=== PATIENT | male | born 1930 | race Caucasian/White ===

== ENCOUNTER 2017-03-19 19:34 | Inpatient (IN) | payer OTHER, BC ==
[~2017-03-19] VITALS: Ht 160 cm; Wt 74.8 kg
[~2017-03-19 19:34] MED LIST: ASPEC81 PO; LEVO-17 PO; LEVO100T48 PO; LEVO25TA34 PO
[2017-03-19] MEDS ORDERED: SODIUM CHLORIDE 0.9% 1000ML 1,000 ML IV STA (19:50)
[2017-03-19] MEDS ORDERED: ONDANSETRON INJ 2 MG/ML 2 ML VIAL IV STA (19:50)
--- NOTE | 2017-03-19 19:57 | EMERGENCY ROOM VISIT NOTE ---
History Report prepared by Ingrid: [facility] Under the Supervision of: Dr. Joe Zavala D.O. First contact with patient: 19:43 Chief Complaint: ABDOMINAL PAIN Stated Complaint: R UPPER ABD PAIN History of Present Illness The patient is an 87 year old male who presents to the Emergency Room with complaints of waxing and waning abdominal pain that started today. Per patient' s daughter, the discomfort is mostly in his right upper quadrant and the discomfort radiates to his right flank. Per patient's daughter, the pain is worsened when she presses on the area. The patient also complains of shivering and not being able to pass urine all day. The patient presented to an acute care who recommended he present to the ED when he was able to pass urine. The patient denies nausea or vomiting. Source of History: patient, family Onset: today Position: abdomen (RUQ) Timing: waxes/wanes Modifying Factors (Worsening): other (pressing on the area) Associated Symptoms: + urinary symptoms (unable to pass urine), No nausea, No vomiting Note: Other associated symptoms: radiation to right flank, shivering Review of Systems See HPI for pertinent positives & negatives. A total of 10 systems reviewed and were otherwise negative. Past Medical & Surgical Medical Problems: (1) Cholecystitis Family History No pertinent family history Social History Smoking Status: Former Smoker Marital Status: Housing Status: lives with significant other Occupation Status: retired Current/Historical Medications Scheduled Aspirin (Aspirin Ec), 81 MG PO DAILY Furosemide (Lasix), 40 MG PO DAILY Levothyroxine Sodium (Levothyroxine Sodium), 100 MG PO DAILY Rivastigmine Tartrate (Exelon), 1 PATCH TOP DAILY [Spiriva 18MCG], 1 PUFF INH DAILY Allergies Coded Allergies: No Known Allergies (Unverified , 05/05/11) Physical Exam Vital Signs Date Time Temp Pulse Resp B/P Pulse Ox O2 Delivery O2 Flow Rate FiO2 03/19/17 21:39 83 25 93 03/19/17 21:32 129/65 03/19/17 21:09 92 28 90 03/19/17 21:05 90 Nasal Cannula 4.0 03/19/17 21:04 87 29 84 03/19/17 21:00 138/62 03/19/17 19:38 37.4 95 20 145/82 98 Room Air Physical Exam GENERAL: Patient is awake but somewhat listless appearing, patient appears mildly uncomfortable. EYES: The conjunctivae are clear. The pupils are round and reactive. EARS, NOSE, MOUTH AND THROAT: The nose is without any evidence of any deformity. Mucous membranes are moist tongue is midline NECK: The neck is nontender and supple. RESPIRATORY: Normal respiratory effort is noted there is no evidence of wheezing rhonchi or rales CARDIOVASCULAR: Regular rate and rhythm noted there no murmurs rubs or gallops normal S1 normal S2 GASTROINTESTINAL: The abdomen is moderate distended and diffusely tender, there was significant tenderness in RUQ. MUSCULOSKELETAL/EXTREMITIES: There is no evidence of gross deformity full range of motion is noted in the hips and shoulders SKIN: There is no obvious evidence of any rash. There are no petechiae, pallor or cyanosis noted. Pedal edema noted bilaterally. NEUROLOGIC: Patient is awake alert and oriented to person and place but not time or situation. Medical Decision & Procedures ER Provider Diagnostic Interpretation: Radiology results as stated below per my review and radiologist interpretation: SINGLE VIEW CHEST CLINICAL HISTORY: Generalized abdominal pain. FINDINGS: An AP, portable, upright chest radiograph is compared to study dated 05/07/2011. The examination is degraded by portable technique and patient rotation. The cardiomediastinal silhouette is unremarkable. There is atherosclerotic calcification of the thoracic aorta. There are low lung volumes and bibasilar atelectasis. No airspace consolidation is identified typical for pneumonia and there is no large pleural effusion. No pneumothorax is seen. The skeletal structures are osteopenic. The bony thorax is grossly intact. IMPRESSION: Low lung volumes with no acute cardiopulmonary abnormality. Electronically signed by: Jaron Villalba M.D. 03/19/2017 8:33 PM Dictated Date/Time: 03/19/2017 8:[address] SCAN OF THE ABDOMEN AND PELVIS WITHOUT IV CONTRAST CLINICAL HISTORY: Right-sided abdominal pain. COMPARISON STUDY: No priors. TECHNIQUE: CT scan of the abdomen and pelvis is performed from the lung bases to the proximal femora. Images are reviewed in the axial, sagittal, and coronal planes. IV contrast was not administered for this examination as per the referring clinician. Note that the examination was performed and significant suboptimal fashion without oral and IV contrast. Automated dose control exposure was utilized. CT DOSE: 814.50 mGy.cm FINDINGS: Lung bases: The heart is enlarged and there is trace pericardial effusion. There are coronary artery calcifications. The main pulmonary arteries appear dilated suggesting pulmonary artery hypertension. A small hiatal hernia is noted. Linear atelectasis versus scarring is present in the lower lobes. There is no airspace consolidation typical for pneumonia or pleural effusion. Liver: The unenhanced liver is normal in size, contour, and attenuation. There is no intrahepatic biliary ductal dilatation. Gallbladder: The gallbladder is distended. Small calcified gallstones are identified. A 4 mm calcified stone is present within the cystic duct as seen on axial image #131. Minimal pericholecystic stranding is observed and the findings are consistent with acute cholecystitis. Spleen: Normal in size and attenuation. Pancreas: The unenhanced pancreas is grossly unremarkable. Adrenal glands: Unremarkable. Kidneys: The unenhanced kidneys are atrophic and without hydronephrosis. A 1.2 cm cyst is noted in the left kidney. Additional subcentimeter cortical hypodensities also likely represent cysts but are too small for definitive characterization. There are no renal calculi identified. There is no evidence of contour deforming renal mass lesion. Abdominal vasculature: The abdominal aorta is normal in course and caliber noting moderate to advanced atherosclerotic calcification. Bowel: There is no bowel obstruction. There is mild to moderate sigmoid diverticulosis without CT evidence of acute diverticulitis. Mild to moderate colonic fecal retention is observed. The appendix is not clearly identified. Peritoneum: There is no intraperitoneal free air or abdominal ascites. There is a small fat-containing umbilical hernia. Lymphadenopathy: None. Pelvic viscera: The prostate gland is surgically absent. Although decompressed, the bladder wall appears thickened and trabeculated suggesting the sequelae of chronic outlet obstruction. Skeletal structures: The skeletal structures are osteopenic. There is moderate to advanced lumbosacral spondylosis. Mild scoliosis is observed. No lytic or blastic lesions are seen. IMPRESSION: 1. Suboptimal examination without oral and IV contrast. 2. Cholelithiasis with evidence of acute cholecystitis. A calcified gallstone is seen within the cystic duct. Surgical consultation is advised. 3. Cardiomegaly. 4. Mild to moderate sigmoid diverticulosis without CT evidence of acute diverticulitis. 5. Additional findings as above. Electronically signed by: Jaron Villalba M.D. 03/19/2017 9:03 PM Dictated Date/Time: 03/19/2017 8:56 PM Laboratory Results 03/19/17 20:07 Red Blood Count 5.55, Mean Corpuscular Volume 91.4, Mean Corpuscular Hemoglobin 31.2, Mean Corpuscular Hemoglobin Concent 34.1, Mean Platelet Volume 9.9, Neutrophils (%) (Auto) 91.2, Lymphocytes (%) (Auto) 2.0, Monocytes (%) (Auto) 6.4, Eosinophils (%) (Auto) 0.0, Basophils (%) (Auto) 0.1, Neutrophils # (Auto) 13.07, Lymphocytes # (Auto) 0.29, Monocytes # (Auto) 0.92, Eosinophils # (Auto) 0.00, Basophils # (Auto) 0.02 03/19/17 20:07 Test 03/19/17 20:07 03/19/17 21:15 White Blood Count 14.35 K/uL (4.8-10.8) Red Blood Count 5.55 M/uL (4.7-6.1) Hemoglobin 17.3 g/dL (14.0-18.0) Hematocrit 50.7 % (42-52) Mean Corpuscular Volume 91.4 fL (80-100) Mean Corpuscular Hemoglobin 31.2 pg (25-34) Mean Corpuscular Hemoglobin Concent 34.1 g/dl (32-36) Platelet Count 193 K/uL (130-400) Mean Platelet Volume 9.9 fL (7.4-10.4) Neutrophils (%) (Auto) 91.2 % Lymphocytes (%) (Auto) 2.0 % Monocytes (%) (Auto) 6.4 % Eosinophils (%) (Auto) 0.0 % Basophils (%) (Auto) 0.1 % Neutrophils # (Auto) 13.07 K/uL (1.4-6.5) Lymphocytes # (Auto) 0.29 K/uL (1.2-3.4) Monocytes # (Auto) 0.92 K/uL (0.11-0.59) Eosinophils # (Auto) 0.00 K/uL (0-0.5) Basophils # (Auto) 0.02 K/uL (0-0.2) RDW Standard Deviation 43.0 fL (36.4-46.3) RDW Coefficient of Variation 12.9 % (11.5-14.5) Immature Granulocyte % (Auto) 0.3 % Immature Granulocyte # (Auto) 0.05 K/uL (0.00-0.02) Prothrombin Time 10.7 SECONDS (9.0-12.0) Prothromb Time International Ratio 1.0 (0.9-1.1) Activated Partial Thromboplast Time 29.6 SECONDS (21.0-31.0) Partial Thromboplastin Ratio 1.1 Anion Gap 1.0 mmol/L (3-11) Est Creatinine Clear Calc Drug Dose 40.0 ml/min Estimated GFR () 63.1 Estimated GFR (Non- 54.4 BUN/Creatinine Ratio 13.7 (10-20) Calcium Level 10.1 mg/dl (8.5-10.1) Total Bilirubin 1.7 mg/dl (0.2-1) Direct Bilirubin 0.3 mg/dl (0-0.2) Aspartate Amino Transf (AST/SGOT) 25 U/L (15-37) Alanine Aminotransferase (ALT/SGPT) 22 U/L (12-78) Alkaline Phosphatase 86 U/L (45-117) Total Creatine Kinase 149 U/L (39-308) Creatine Kinase MB 2.4 ng/ml (0.5-3.6) Creatine Kinase MB Ratio 1.6 (0-3.0) Troponin I < 0.015 ng/ml (0-0.045) Total Protein 7.5 gm/dl (6.4-8.2) Albumin 3.6 gm/dl (3.4-5.0) Lipase 93 U/L (73-393) Urine Color DK YELLOW Urine Appearance CLEAR (CLEAR) Urine pH 5.5 (4.5-7.5) Urine Specific [place] 1.028 (1.000-1.030) Urine Protein 1+ (NEG) Urine Glucose (UA) NEG (NEG) Urine Ketones TRACE (NEG) Urine Occult Blood NEG (NEG) Urine Nitrite NEG (NEG) Urine Bilirubin NEG (NEG) Urine Urobilinogen NEG (NEG) Urine Leukocyte Esterase NEG (NEG) Urine WBC (Auto) 1-5 /hpf (0-5) Urine RBC (Auto) 0-4 /hpf (0-4) Urine Hyaline Casts (Auto) 1-5 /lpf (0-5) Urine Epithelial Cells (Auto) >30 /lpf (0-5) Urine Bacteria (Auto) NEG (NEG) Urine Renal Epithelial Cells 0-5 /lpf (0-5) Laboratory results per my review. Medications Administered Medications (Trade) Dose Ordered Sig/Bennett Route Start Time Stop Time Status Last Admin Dose Admin Sodium Chloride (Nss 1000ml) 1,000 ml @ 125 mls/hr Q8H STAT IV 03/19/17 19:50 03/20/17 00:18 DC 03/19/17 20:15 125 MLS/HR Morphine Sulfate (MoRPHine SULFATE INJ) 4 mg Q15M PRN IV 03/19/17 20:00 03/20/17 00:19 DC 03/19/17 20:16 4 MG Ondansetron HCl (Zofran Inj) 4 mg NOW STAT IV 03/19/17 19:50 03/19/17 19:52 DC 03/19/17 20:15 4 MG Piperacillin Sod/ Tazobactam Sod (Zosyn Iv) 4.5 gm NOW STAT IV 03/19/17 20:44 03/19/17 20:45 DC 03/19/17 20:51 4.5 GM ECG Indication: abdominal pain Rate (beats per minute): 86 Rhythm: normal sinus Findings: RBBB (pattern noted), other (no PVCs) Change: no significant change (when compared to May 05, 2011) ED Course 1947: The patient was evaluated in room B7. A complete history and physical examination were performed. 1949: Ordered Zofran Inj 4 mg IV, NSS 1000 ml @ 125 mls/hr IV. 1999: Ordered Morphine Sulfate 4 mg IV. 2043: Ordered Zosyn Iv 4.5 gm IV. 2114: At this time, I discussed the patient's case with Dr. Wilkinson - [place] [facility] [place] he recommended that the patient be medically admitted. 2127: At this time, I discussed the patient's case with Dr. Curiel - Hospitalist [facility] and he agreed to accept the patient for further evaluation. Medical Decision Differential diagnosis: Etiologies such as appendicitis, diverticulitis, PUD, biliary pathology, UTI, pancreatitis, obstruction, mesenteric ischemia, aortic pathology, infections, inflammatory bowel disease, renal colic, as well as others were entertained. Nursing notes reviewed. Additional history is obtained from the patient's family member. The patient is an 87-year-old male who presented to the emergency department for evaluation of right upper quadrant abdominal pain. The patient's history and physical exam appeared to be consistent cholecystitis. This was confirmed on CAT scan the abdomen and pelvis. He was further treated with IV fluids IV antiemetics and IV antibiotics. He is also given IV pain medication. On subsequent reevaluation he was significantly improved. I discussed the patient' s laboratory and radiographic studies with him and his family members. I also discussed his case with the on-call general surgeon as well as the on-call [facility] hospitalist. They've agreed to evaluate patient in the emergency department for further management and disposition. Consults Time Called: 2109 Consulting Physician: Dr. Wilkinson - General Surgery [facility] [place]ed Call: 2114 At this time, I discussed the patient's case with Dr. Wilkinson and he recommended that the patient be medically admitted. Additional Consults: Time Called: 2121 Consulted Physician: Dr. Curiel - Hospitalist [facility] Returned Call: 2127 Additional Comments: At this time, I discussed the patient's case with Dr. Curiel and he agreed to accept the patient for further evaluation. Impression Primary Impression: Acute cholecystitis Additional Impression: Abdominal pain Scribe Attestation The scribe's documentation has been prepared under my direction and personally reviewed by me in its entirety. I confirm that the note above accurately reflects all work, treatment, procedures, and medical decision making performed by me. Departure Information Dispostion Being Evaluated By Hospitalist Referrals No Doctor, Assigned (PCP) Problem Qualifiers Additional Impression: Abdominal pain Abdominal location: right upper quadrant Qualified Codes: R10.11 - Right upper quadrant pain
[2017-03-19] MEDS ORDERED: MoRPHine SULFATE 4 MG/ML 1 ML CARP\\VIAL IV PRN (20:00)
[2017-03-19 20:18] LABS: BASO % 0.1 %; BASO ABS # 0.02 K/uL (0-0.2); COMPLETE YES; HEMATOCRIT 50.7 % (42-52); IG% 0.3 %; LYMPH ABS # 0.29 K/uL (1.2-3.4); MEAN CELL VOLUME 91.4 fL (80-100); MEAN CORPUSCULAR HEMOGLOBIN 31.2 pg (25-34); MEAN CORPUSCULAR HGB CONC 34.1 g/dl (32-36); MEAN PLATELET VOLUME 9.9 fL (7.4-10.4); MONO % 6.4 %; NEUT % 91.2 %; PLATELET COUNT 193 K/uL (130-400); RED BLOOD COUNT 5.55 M/uL (4.7-6.1); WHITE BLOOD COUNT 14.35 K/uL (4.8-10.8)
[2017-03-19 20:28] LABS: PARTIAL THROMBOPLASTIN RATIO 1.1; PROTHROMBIN TIME (PATIENT) 10.7 SECONDS (9.0-12.0)
[2017-03-19] MEDS ORDERED: LEVO100T7 PO (20:30)
[2017-03-19] MEDS ORDERED: SPIRIVA 18MCG INH (20:32)
[2017-03-19] MEDS ORDERED: EXLP95 TOP (20:34)
[2017-03-19] MEDS ORDERED: FRS/40 PO (20:35)
[2017-03-19] MEDS ORDERED: ASPI81TA28 PO (20:35)
--- NOTE | 2017-03-19 20:35 | DIAGNOSTIC IMAGING REPORT ---
SINGLE VIEW CHEST CLINICAL HISTORY: Generalized abdominal pain. FINDINGS: An AP, portable, upright chest radiograph is compared to study dated 05/07/2011. The examination is degraded by portable technique and patient rotation. The cardiomediastinal silhouette is unremarkable. There is atherosclerotic calcification of the thoracic aorta. There are low lung volumes and bibasilar atelectasis. No airspace consolidation is identified typical for pneumonia and there is no large pleural effusion. No pneumothorax is seen. The skeletal structures are osteopenic. The bony thorax is grossly intact. IMPRESSION: Low lung volumes with no acute cardiopulmonary abnormality. Electronically signed by: Jaron Villalba M.D. 03/19/2017 8:33 PM Dictated Date/Time: 03/19/2017 8:32 PM
[2017-03-19 20:36] LABS: ALT/SGPT 22 U/L (12-78); AST/SGOT 25 U/L (15-37); BLOOD UREA NITROGEN 16 mg/dl (7-18); BUN/CREATININE RATIO 13.7 (10-20); CALCIUM 10.1 mg/dl (8.5-10.1); CARBON DIOXIDE 38 mmol/L (21-32); CHLORIDE 99 mmol/L (98-107); GLUCOSE 158 mg/dl (70-99); POTASSIUM 4.3 mmol/L (3.5-5.1); SODIUM 138 mmol/L (136-145)
[2017-03-19] MEDS ORDERED: NMN5 PO (20:37)
[2017-03-19 20:42] LABS: ALKALINE PHOSPHATASE 86 U/L (45-117); CKMB/CK RATIO 1.6 (0-3.0)
[2017-03-19] MEDS ORDERED: HYDR12.55 PO (20:43)
[2017-03-19] MEDS ORDERED: PIPERACILLIN/TAZOBACTAM 4.5 GM/100ML D5W IV STA (20:44)
--- NOTE | 2017-03-19 21:05 | DIAGNOSTIC IMAGING REPORT ---
CT SCAN OF THE ABDOMEN AND PELVIS WITHOUT IV CONTRAST CLINICAL HISTORY: Right-sided abdominal pain. COMPARISON STUDY: No priors. TECHNIQUE: CT scan of the abdomen and pelvis is performed from the lung bases to the proximal femora. Images are reviewed in the axial, sagittal, and coronal planes. IV contrast was not administered for this examination as per the referring clinician. Note that the examination was performed and significant suboptimal fashion without oral and IV contrast. Automated dose control exposure was utilized. CT DOSE: 814.50 mGy.cm FINDINGS: Lung bases: The heart is enlarged and there is trace pericardial effusion. There are coronary artery calcifications. The main pulmonary arteries appear dilated suggesting pulmonary artery hypertension. A small hiatal hernia is noted. Linear atelectasis versus scarring is present in the lower lobes. There is no airspace consolidation typical for pneumonia or pleural effusion. Liver: The unenhanced liver is normal in size, contour, and attenuation. There is no intrahepatic biliary ductal dilatation. Gallbladder: The gallbladder is distended. Small calcified gallstones are identified. A 4 mm calcified stone is present within the cystic duct as seen on axial image #131. Minimal pericholecystic stranding is observed and the findings are consistent with acute cholecystitis. Spleen: Normal in size and attenuation. Pancreas: The unenhanced pancreas is grossly unremarkable. Adrenal glands: Unremarkable. Kidneys: The unenhanced kidneys are atrophic and without hydronephrosis. A 1.2 cm cyst is noted in the left kidney. Additional subcentimeter cortical hypodensities also likely represent cysts but are too small for definitive characterization. There are no renal calculi identified. There is no evidence of contour deforming renal mass lesion. Abdominal vasculature: The abdominal aorta is normal in course and caliber noting moderate to advanced atherosclerotic calcification. Bowel: There is no bowel obstruction. There is mild to moderate sigmoid diverticulosis without CT evidence of acute diverticulitis. Mild to moderate colonic fecal retention is observed. The appendix is not clearly identified. Peritoneum: There is no intraperitoneal free air or abdominal ascites. There is a small fat-containing umbilical hernia. Lymphadenopathy: None. Pelvic viscera: The prostate gland is surgically absent. Although decompressed, the bladder wall appears thickened and trabeculated suggesting the sequelae of chronic outlet obstruction. Skeletal structures: The skeletal structures are osteopenic. There is moderate to advanced lumbosacral spondylosis. Mild scoliosis is observed. No lytic or blastic lesions are seen. IMPRESSION: 1. Suboptimal examination without oral and IV contrast. 2. Cholelithiasis with evidence of acute cholecystitis. A calcified gallstone is seen within the cystic duct. Surgical consultation is advised. 3. Cardiomegaly. 4. Mild to moderate sigmoid diverticulosis without CT evidence of acute diverticulitis. 5. Additional findings as above. Electronically signed by: Jaron Villalba M.D. 03/19/2017 9:03 PM Dictated Date/Time: 03/19/2017 8:56 PM
[2017-03-19 21:48] LABS: URINE APPEARANCE CLEAR (CLEAR); URINE COLOR DK YELLOW; URINE EPITHELIAL CELL AUTO >30 /lpf (0-5); URINE NITRITE NEG (NEG); URINE PH 5.5 (4.5-7.5); URINE SPECIFIC GRAVITY 1.028 (1.000-1.030); UROBILINOGEN NEG (NEG); ZZURINE CULT IF INDIC CATH NO
[2017-03-19 21:50] LABS: MANUAL MICROSCOPIC REQUIRED? NO; REVIEW REQ? YES
[2017-03-19 21:51] LABS: URINE BILIRUBIN NEG (NEG)
--- NOTE | 2017-03-19 21:53 | Medical Consult ---
Consultation Date of Consultation: March 19, 2017. Attending Physician: Reason for Consultation: abd pain History of Present Illness persistent RUQ abd pain w/ radiation to the back associated with some nausea- atypical for pt TB 1.7, wbc 14.3 CT- distended gb with small gallstones Social History Smoking Status: Former Smoker Marital Status: Allergies Coded Allergies: No Known Allergies (Unverified , 05/05/11) Current Inpatient Medications Current Inpatient Medications Medications (Trade) Dose Ordered Sig/Bennett Route Start Time Stop Time Status Last Admin Dose Admin Sodium Chloride (Nss 1000ml) 1,000 ml @ 125 mls/hr Q8H STAT IV 03/19/17 19:50 03/20/17 03:49 03/19/17 20:15 125 MLS/HR Morphine Sulfate (MoRPHine SULFATE INJ) 4 mg Q15M PRN IV 03/19/17 20:00 04/02/17 19:59 03/19/17 20:16 4 MG Review of Systems Constitutional: + chills, No fever Respiratory: + shortness of breath, No cough Cardiovascular: No chest pain Abdomen: + nausea, + pain, No vomiting Musculoskeletal: No joint pain Neurologic: + problem reported (mild memory loss) Endocrine: No fatigue Integumentary: No rash Physical Exam Date Time Temp Pulse Resp B/P Pulse Ox O2 Delivery O2 Flow Rate FiO2 03/19/17 21:05 90 Nasal Cannula 4.0 03/19/17 21:04 87 29 84 03/19/17 21:00 138/62 03/19/17 19:38 37.4 95 20 145/82 98 Room Air General Appearance: + mild distress (from RUQ abd pain) Eyes: sclerae normal Neck: supple Respiratory/Chest: normal breath sounds, no respiratory distress Cardiovascular: regular rate, rhythm Abdomen/GI: soft, + tenderness (mild RUQ) Extremities/Musculoskelatal: no pedal edema Skin: no rash Laboratory Results Last 24 Hours Test 03/19/17 20:07 03/19/17 21:15 White Blood Count 14.35 K/uL Red Blood Count 5.55 M/uL Hemoglobin 17.3 g/dL Hematocrit 50.7 % Mean Corpuscular Volume 91.4 fL Mean Corpuscular Hemoglobin 31.2 pg Mean Corpuscular Hemoglobin Concent 34.1 g/dl Platelet Count 193 K/uL Mean Platelet Volume 9.9 fL Neutrophils (%) (Auto) 91.2 % Lymphocytes (%) (Auto) 2.0 % Monocytes (%) (Auto) 6.4 % Eosinophils (%) (Auto) 0.0 % Basophils (%) (Auto) 0.1 % Neutrophils # (Auto) 13.07 K/uL Lymphocytes # (Auto) 0.29 K/uL Monocytes # (Auto) 0.92 K/uL Eosinophils # (Auto) 0.00 K/uL Basophils # (Auto) 0.02 K/uL RDW Standard Deviation 43.0 fL RDW Coefficient of Variation 12.9 % Immature Granulocyte % (Auto) 0.3 % Immature Granulocyte # (Auto) 0.05 K/uL Prothrombin Time 10.7 SECONDS Prothromb Time International Ratio 1.0 Activated Partial Thromboplast Time 29.6 SECONDS Partial Thromboplastin Ratio 1.1 Sodium Level 138 mmol/L Potassium Level 4.3 mmol/L Chloride Level 99 mmol/L Carbon Dioxide Level 38 mmol/L Anion Gap 1.0 mmol/L Blood Urea Nitrogen 16 mg/dl Creatinine 1.20 mg/dl Est Creatinine Clear Calc Drug Dose 40.0 ml/min Estimated GFR () 63.1 Estimated GFR (Non- 54.4 BUN/Creatinine Ratio 13.7 Random Glucose 158 mg/dl Calcium Level 10.1 mg/dl Total Bilirubin 1.7 mg/dl Direct Bilirubin 0.3 mg/dl Aspartate Amino Transf (AST/SGOT) 25 U/L Alanine Aminotransferase (ALT/SGPT) 22 U/L Alkaline Phosphatase 86 U/L Total Creatine Kinase 149 U/L Creatine Kinase MB 2.4 ng/ml Creatine Kinase MB Ratio 1.6 Troponin I < 0.015 ng/ml Total Protein 7.5 gm/dl Albumin 3.6 gm/dl Lipase 93 U/L Assessment & Plan 03/19/17- pt with suspected acute cholecystitis- considering MRCP to evaluate for CBD stones- plan- IV atbx, IV fluids, probable lap bon, possible cholangiogram tomorrow
[2017-03-19] MEDS ORDERED: ONDANSETRON INJ 2 MG/ML 2 ML VIAL IV PRN (22:00)
[2017-03-19] MEDS ORDERED: ALUMINUM/MAGNESIUM/SIMETH (MAALOX MAX) 30 ML UDC PO PRN (22:00)
[2017-03-19] MEDS ORDERED: LEVALBUTEROL/IPRATROPIUM NEB INH PRN (22:00)
[2017-03-19] MEDS ORDERED: MoRPHine SULFATE 2 MG/ML CARP IV PRN (22:00)
[2017-03-19] MEDS ORDERED: ALBUTEROL HFA 8 GM INHALER INH PRN (22:00)
--- NOTE | 2017-03-19 22:58 | HISTORY & PHYSICAL EXAMINATION ---
DATE OF ADMISSION: 03/19/2017 CHIEF COMPLAINT: Abdominal pain. HISTORY OF PRESENT ILLNESS: This is an 87-year-old male with past medical history significant for sleep apnea status post surgery, history of hypothyroidism, lower extremity edema, hypertension, not on any medications, history of prostate cancer and prostatitis and Lyme disease, presents with right upper quadrant abdominal pain. The patient also has some early dementia. The patient lives with his , is ambulatory and can climb steps and is alert and oriented most of the times, but sometimes gets confused because of his dementia. Patient complained of right upper quadrant abdominal pain today, radiating to his back, moderate in severity and patient was also having some chills at that time and some nausea and decided to come to the ER. In the ER, a CAT scan showed cholecystitis. The patient's pain is controlled with pain medication. Resting comfortably, hemodynamically stable. Denies any chest pain, no shortness of breath, no cough, no headaches, no nausea, no vomiting at this time. Normal bowel and bladder movements. Appetite is okay. ALLERGIES: No known drug allergies. PAST MEDICAL HISTORY: As mentioned above. PAST SURGICAL HISTORY: Prostate laser complete, removal of a pharynx lesion, obstructive sleep apnea. MEDICATIONS: The patient is on aspirin 81 mg p.o. daily, Lasix 40 mg p.o. daily, levothyroxine 100 mcg p.o. daily, Exelon 9.5 mg patch daily, Spiriva 18 mcg inhalation daily. FAMILY HISTORY: Significant for hypertension. SOCIAL HISTORY: No smoking, no alcohol use. 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 REVIEW OF SYMPTOMS: As per HPI. Rest of the review of symptoms negative. PHYSICAL EXAMINATION: GENERAL: The patient is old and frail, not in distress. VITAL SIGNS: Temperature 37, pulse 87, respiratory rate 20, blood pressure 138/62, oxygen 90% on 4 liters. HEENT: No pallor, no icterus. Pupils equal, round, and reactive to light. NECK: No JVD, no neck masses, no carotid bruits. CARDIOVASCULAR: S1, S2 heard, regular rate and rhythm, no murmur, no gallop. RESPIRATORY SYSTEM: Clear to auscultation bilaterally. No accessory muscle use. No wheezing, no crackles. ABDOMEN: Soft, bowel sounds present. Mild right upper quadrant tenderness, no guarding, no rigidity. No distention. CENTRAL NERVOUS SYSTEM: Alert and awake. Nonfocal. EXTREMITIES: Lower extremity edema present. No erythema seen. LABORATORIES: WBC 14.3, hemoglobin 7.3, hematocrit 50.7, platelets 193. Sodium 138, potassium 4.3, chloride 99, CO2 38, BUN 16, creatinine 1.2, serum glucose 158, calcium 10.1, total bilirubin 1.7, direct bilirubin 0.3, AST 25, ALT 22, alkaline phosphatase 86, total creatine kinase 149, troponin I less than 0.015. Lipase 93. PT 10.7, INR 1, PTT 29.6. Urinalysis, trace ketones; otherwise unremarkable. Chest x-ray, low lung volumes with no acute cardiopulmonary abnormalities. EKG shows normal sinus rhythm with a rate of 82, right bundle-branch block, no acute ST changes seen. CT of the abdomen and pelvis, choledocholithiasis with evidence of acute cholecystitis. A calcified gallstone is seen within the cystic duct, [id number] sigmoid diverticulosis without CT evidence of acute diverticulitis. ASSESSMENT AND PLAN: This 87-year-old male presents with right upper quadrant abdominal pain. CAT scan shows acute cholecystitis. 1. Acute cholecystitis. There is also a question of a calcified gallstone in the cystic duct. Bilirubin is slightly elevated at 1.7. Seen by surgery. Will empirically place on IV antibiotics, Cipro and Flagyl IV, IV antiemetics, IV pain medication, IV fluids. Plan for MRCP tonight to evaluate for any common bile duct stones. Plan to keep the patient n.p.o. for possible surgery in the a.m. Patient is currently hemodynamically stable. 2. History of chronic obstructive pulmonary disease. Continue his home Spiriva and inhalers p.r.n. 3. History of chronic lower extremity edema, on Lasix daily, which we are holding for now as patient is npo. 4. History of sleep apnea, status post surgery, not on CPAP. 5. Deep venous thrombosis prophylaxis. Sequential compression devices for now in anticipation of surgery. DISPOSITION: Admit to medical floor. Expect to discharge home and follow with his family doctor. PT and OT prior to discharge. Level 1. Full code. MTDD
[2017-03-20] VITALS (10 sets, daily range): BP systolic 115–144; BP diastolic 62–72; PULSE 80–91; TEMP 36.3–37.5; O2SAT 91–96; Ht 160 cm; Wt 74.8 kg
[2017-03-20] MEDS: METRONIDAZOLE / NSS 500 MG in PREMIXED NSS 100 ML IV SCH ×3 (01:16→17:23)
[2017-03-20] MEDS: CIPROFLOXACIN / D5W 400 MG in PREMIXED IN D5W 200 ML IV SCH ×2 (01:16→12:47)
[2017-03-20] MEDS: SODIUM CHLORIDE 0.9% 1000ML 1,000 ML IV SCH ×3 (01:17→19:42)
--- NOTE | 2017-03-20 05:43 | Surgery Progress Note ---
Surgery Progress Note Date of Service March 20, 2017. Subjective No nausea, No vomiting resting comfortably in bed, afeb, minimal pain at present Objective Vital Signs: Date Time Temp Pulse Resp B/P Pulse Ox O2 Delivery O2 Flow Rate FiO2 03/20/17 00:40 Nasal Cannula 2.0 03/20/17 00:19 37.1 91 16 144/64 91 Nasal Cannula 2.0 03/19/17 23:35 75 18 114/68 93 Nasal Cannula 4.0 03/19/17 22:36 77 23 96 Nasal Cannula 4.0 03/19/17 22:31 125/59 03/19/17 22:06 83 26 95 Nasal Cannula 4.0 03/19/17 22:01 128/58 03/19/17 21:39 83 25 93 03/19/17 21:32 129/65 03/19/17 21:09 92 28 90 03/19/17 21:05 90 Nasal Cannula 4.0 03/19/17 21:04 87 29 84 03/19/17 21:00 138/62 03/19/17 19:38 37.4 95 20 145/82 98 Room Air General Appearance: no apparent distress Respiratory/Chest: no respiratory distress Cardiovascular: regular rate, rhythm Abdomen: non distended, soft Laboratory Results: Results Past 24 Hours Test 03/19/17 20:07 03/19/17 21:15 03/20/17 04:44 Range/Units White Blood Count 14.35 4.8-10.8 K/uL Red Blood Count 5.55 4.7-6.1 M/uL Hemoglobin 17.3 14.0-18.0 g/dL Hematocrit 50.7 42-52 % Mean Corpuscular Volume 91.4 80-100 fL Mean Corpuscular Hemoglobin 31.2 25-34 pg Mean Corpuscular Hemoglobin Concent 34.1 32-36 g/dl Platelet Count 193 130-400 K/uL Mean Platelet Volume 9.9 7.4-10.4 fL Neutrophils (%) (Auto) 91.2 % Lymphocytes (%) (Auto) 2.0 % Monocytes (%) (Auto) 6.4 % Eosinophils (%) (Auto) 0.0 % Basophils (%) (Auto) 0.1 % Neutrophils # (Auto) 13.07 1.4-6.5 K/uL Lymphocytes # (Auto) 0.29 1.2-3.4 K/uL Monocytes # (Auto) 0.92 0.11-0.59 K/uL Eosinophils # (Auto) 0.00 0-0.5 K/uL Basophils # (Auto) 0.02 0-0.2 K/uL RDW Standard Deviation 43.0 36.4-46.3 fL RDW Coefficient of Variation 12.9 11.5-14.5 % Immature Granulocyte % (Auto) 0.3 % Immature Granulocyte # (Auto) 0.05 0.00-0.02 K/uL Prothrombin Time 10.7 9.0-12.0 SECONDS Prothromb Time International Ratio 1.0 0.9-1.1 Activated Partial Thromboplast Time 29.6 21.0-31.0 SECONDS Partial Thromboplastin Ratio 1.1 Sodium Level 138 136-145 mmol/L Potassium Level 4.3 3.5-5.1 mmol/L Chloride Level 99 98-107 mmol/L Carbon Dioxide Level 38 21-32 mmol/L Anion Gap 1.0 3-11 mmol/L Blood Urea Nitrogen 16 7-18 mg/dl Creatinine 1.20 0.60-1.40 mg/dl Est Creatinine Clear Calc Drug Dose 40.0 ml/min Estimated GFR () 63.1 Estimated GFR (Non- 54.4 BUN/Creatinine Ratio 13.7 10-20 Random Glucose 158 70-99 mg/dl Calcium Level 10.1 8.5-10.1 mg/dl Total Bilirubin 1.7 0.2-1 mg/dl Direct Bilirubin 0.3 0-0.2 mg/dl Aspartate Amino Transf (AST/SGOT) 25 15-37 U/L Alanine Aminotransferase (ALT/SGPT) 22 12-78 U/L Alkaline Phosphatase 86 45-117 U/L Total Creatine Kinase 149 39-308 U/L Creatine Kinase MB 2.4 0.5-3.6 ng/ml Creatine Kinase MB Ratio 1.6 0-3.0 Troponin I < 0.015 0-0.045 ng/ml Total Protein 7.5 6.4-8.2 gm/dl Albumin 3.6 3.4-5.0 gm/dl Lipase 93 73-393 U/L Urine Color DK YELLOW Urine Appearance CLEAR CLEAR Urine pH 5.5 4.5-7.5 Urine Specific [place] 1.028 1.000-1.030 Urine Protein 1+ NEG Urine Glucose (UA) NEG NEG Urine Ketones TRACE NEG Urine Occult Blood NEG NEG Urine Nitrite NEG NEG Urine Bilirubin NEG NEG Urine Urobilinogen NEG NEG Urine Leukocyte Esterase NEG NEG Urine WBC (Auto) 1-5 0-5 /hpf Urine RBC (Auto) 0-4 0-4 /hpf Urine Hyaline Casts (Auto) 1-5 0-5 /lpf Urine Epithelial Cells (Auto) >30 0-5 /lpf Urine Bacteria (Auto) NEG NEG Urine Renal Epithelial Cells 0-5 0-5 /lpf Assessment & Plan 03/20/17- pt is stable- no acute chgs. Plan for lap bon, possible cholangiogram. may have passed stone through CBD, check MRCP this am - early if possible. Check labs
[2017-03-20] MEDS: LEVOTHYROXINE 100 MCG TAB PO SCH (06:02)
[2017-03-20 07:16] LABS: BASO % 0.2 %; BASO ABS # 0.02 K/uL (0-0.2); COMPLETE YES; EOS % 0.1 %; HEMATOCRIT 45.4 % (42-52); IG% 0.2 %; LYMPH % 3.9 %; LYMPH ABS # 0.47 K/uL (1.2-3.4); MEAN CELL VOLUME 92.8 fL (80-100); MEAN CORPUSCULAR HEMOGLOBIN 30.1 pg (25-34); MEAN CORPUSCULAR HGB CONC 32.4 g/dl (32-36); MEAN PLATELET VOLUME 9.9 fL (7.4-10.4); NEUT % 88.6 %; PLATELET COUNT 164 K/uL (130-400); RED BLOOD COUNT 4.89 M/uL (4.7-6.1)
[2017-03-20 07:47] LABS: ESTIMATED AVERAGE GLUCOSE 108 mg/dl; HA1C FLAG Normal (Normal)
[2017-03-20] MEDS ORDERED: PNEUMOCOCCAL ADMINISTRATION CHARGE ONE (08:00)
[2017-03-20] MEDS ORDERED: PNEUMOCOCCAL POLYSACCHARIDES 25 MCG/0.5 ML VIAL/SYR IM. ONE (08:00)
[2017-03-20 08:06] LABS: BUN/CREATININE RATIO 14.2 (10-20); CALCIUM 9.3 mg/dl (8.5-10.1); CREATININE 1.4 mg/dl (0.60-1.40); MAGNESIUM 1.9 mg/dl (1.8-2.4); POTASSIUM 4.5 mmol/L (3.5-5.1)
--- NOTE | 2017-03-20 08:46 | DIAGNOSTIC IMAGING REPORT ---
MRCP CLINICAL HISTORY: r/o CBD stone TECHNIQUE: MRCP COMPARISON STUDY: CT study dated 03/19/2017 FINDINGS: Small right pleural effusion with minimal basilar atelectatic change. Gallbladder slightly distended. Several small gallstones are present. Trace amount of pericholecystic fluid and/or edematous change. The stone within the cystic duct is not easily appreciated by MRI criteria. Common bile duct is unremarkable as is the pancreatic duct. IMPRESSION: 1. Bibasilar atelectasis. 2. Mild edematous change about the gallbladder suggesting acute cholecystitis. 3. Normal appearance to the common bile duct and pancreatic duct. 4. Previous described cystic duct stone is not easily identified on this exam most likely secondary to technical lack of resolution. Electronically signed by: Nikolay Dior M.D. 03/20/2017 8:45 AM Dictated Date/Time: 03/20/2017 8:39 AM
[2017-03-20] MEDS: TIOTROPIUM BROMIDE 5 PUFF/90 MCG INH INH SCH (10:08)
[2017-03-20] MEDS: RIVASTIGMINE TARTRATE 9.5 MG PATCH TD SCH (10:10)
[2017-03-20] MEDS ORDERED: MIDAZOLAM HCL 1 MG/ML 2ML VIAL ONE (14:04)
[2017-03-20] MEDS ORDERED: FENTANYL CITRATE INJ 50 MCG/1 ML 2 ML VIAL ONE (14:05)
[2017-03-20] MEDS ORDERED: CONRAY 60% 50 ML VIAL ONE (14:37)
[2017-03-20] MEDS ORDERED: BUPIVACAINE 0.5 % 5 MG/1 ML MPF 30ML VIAL ONE (14:37)
[2017-03-20] MEDS ORDERED: ATROPINE SULFATE 0.1 MG/ML 5ML SYR IV PRN (15:15)
[2017-03-20] MEDS ORDERED: EpHEDrine SULFATE INJ 50 MG/ML AMP IV PRN (15:15)
[2017-03-20] MEDS ORDERED: ONDANSETRON INJ 2 MG/ML 2 ML VIAL IV PRN (15:15)
[2017-03-20] MEDS ORDERED: FENTANYL CITRATE INJ 50 MCG/1 ML 2 ML VIAL IV PRN (15:15)
[2017-03-20] MEDS ORDERED: ROCURONIUM BROMIDE 10 MG/ML 5 ML VIAL ONE (15:21)
[2017-03-20] MEDS ORDERED: PROPOFOL IV EMULSION 10 MG/ML 20 ML VIAL IV ONE (15:21)
[2017-03-20] MEDS ORDERED: ONDANSETRON INJ 2 MG/ML 2 ML VIAL ONE (15:21)
[2017-03-20] MEDS ORDERED: DEXAMETHASONE SOD INJ 4 MG/ML VIAL ONE (15:21)
[2017-03-20] MEDS ORDERED: GLYCOPYRROLATE INJ 0.2 MG/ML VIAL ONE (15:21)
[2017-03-20] MEDS ORDERED: LIDOCAINE HCL 2% 2 ML VIAL (20MG/ML) ONE (15:21)
[2017-03-20] MEDS ORDERED: SUCCINYLCHOLINE CHLORIDE 20 MG/ML 10 ML VIAL IV ONE (15:21)
[2017-03-20] MEDS ORDERED: LARYING-O-JET KIT (LTA) EXT ONE ×2 (15:21)
[2017-03-20] MEDS ORDERED: PHENYLEPHRINE 100MCG/ML 5ML SYR ONE (15:21)
[2017-03-20] MEDS ORDERED: NEOSTIGMINE METHYLSULFATE 5 MG/5 ML SYR ONE (15:21)
--- NOTE | 2017-03-20 15:39 | DIAGNOSTIC IMAGING REPORT ---
INTRAOPERATIVE CHOLANGIOGRAM HISTORY: Post cholecystectomy. FLUOROSCOPY TIME: 11 seconds. FINDINGS: Fluoroscopy was provided for an intraoperative cholangiogram status post cholecystectomy. Contrast was injected through the cystic duct remnant. The common bile duct is normal in course and caliber. There are no filling defects seen within the common bile duct to suggest a retained stone. Contrast extends into the small bowel. There is no intrahepatic bile duct dilatation. IMPRESSION: Fluoroscopy provided for an intraoperative cholangiogram status post cholecystectomy. No filling defects within the common bile duct. Electronically signed by: Nikolay Dior M.D. 03/20/2017 3:38 PM Dictated Date/Time: 03/20/2017 3:38 PM
[2017-03-20] MEDS ORDERED: GELATIN SPONGE SZ 100 ONE (15:42)
[2017-03-20] MEDS ORDERED: THROMBIN 5000 UNITS KIT ONE (15:42)
[2017-03-20] MEDS ORDERED: SURGICEL ABSORB HEMOSTAT 2IN X 14IN TOP ONE (15:45)
--- NOTE | 2017-03-20 16:05 | [facility] Post Operative Brief Note ---
Immediate Operative Summary Operative Date March 20, 2017. Pre-Operative Diagnosis Acute cholecystitis Post-Operative Diagnosis Acute cholecystitis, gangrenous cholecystitis bilious ascites Procedure(s) Performed Laparoscopic Cholecystectomy, with Intraoperative Cholangiogram Surgeon Dr. Nicholas Wilkinson Supervisor Uranium Processing Surgeon(s) Sidney Harry PA-C and Chely Jacinto PA-C Estimated Blood Loss 30 mL Findings necrotic gb w/ bilious ascites and no defects on cholangiogram Specimens Permanent specimens A: Gallbladder and contents Drains # [address] SULLY to subhepatic space Anesthesia gen Complication(s) None Disposition Recovery Room / PACU
--- NOTE | 2017-03-20 16:40 | OPERATIVE REPORT ---
DATE OF OPERATION: 03/20/2017 NAME OF OPERATION: Laparoscopic cholecystectomy with intraoperative cholangiogram. PREOPERATIVE DIAGNOSIS: Acute cholecystitis. POSTOPERATIVE DIAGNOSIS: Same with necrotizing cholecystitis, bilious ascites. STAFF SURGEON: Nicholas Wilkinson MD ASSISTANTS: Sidney Harry PA-C and Chely Jacinto PA-C ANESTHESIA: General. DESCRIPTION OF PROCEDURE: The patient was brought in the operating room and placed on the operating table in supine position. His abdomen was prepped and draped in the usual fashion. Barnes catheter was already in place. Pneumatic stockings were placed. Orogastric tube was placed. Using 0.5% plain Marcaine, all incisions were anesthetized. Incision was made above the umbilicus, carrying dissection down to the fascia, placing a Veress needle producing pneumoperitoneum. An 11 mm port was placed at this level and under visualization, three 5 mm ports were placed. The omentum was severely adherent to the liver and gallbladder with a fibrinous exudate, necrosis of the gallbladder, all consistent with gangrenous cholecystitis and bilious ascites. The omentum was taken down away from the gallbladder. The gallbladder was aspirated of bile. It was then retracted. Dissection carried out at the michel hepatis, identifying the cystic duct. The duct was clipped next to the gallbladder and then partially opened. Cholangiography was performed showing a mildly dilated common bile duct with no defects. Cystic duct was then clipped and transected. The cystic artery identified, clipped and transected. There was also another small branch that needed to be clipped. The gallbladder was then dissected away from the liver bed. It was necrotic. There was severe edema. It was placed into an Endobag. After appropriate irrigation and hemostasis, a small piece of Gelfoam with thrombin was placed into the liver bed and then a 19 round Johnathon-Wilkes drain brought through the lateral 5 mm port, placed into the subhepatic space, secured to the skin using 3-0 nylon suture. All ports were then removed. The gallbladder was removed through the umbilical site. I did have to enlarge the fascial defect because of the size of the gallbladder. The fascia was closed using 0 PDS suture, subcutaneous tissue reapproximated using 2-0 plain catgut suture and then the skin reapproximated using 4-0 nylon suture. The patient was transferred to recovery room in stable condition. I attest to the content of the Intraoperative Record and any orders documented therein. Any exceptio ns are noted below.
--- NOTE | 2017-03-20 16:45 | Anesthesiology Progress Note ---
Anesthesia Post Op Note Date & Time March 20, 2017 at 16:46 Vital Signs Pain Intensity: 0 Vital Signs Past 12 Hours Date Time Temp Pulse Resp B/P Pulse Ox O2 Delivery O2 Flow Rate FiO2 03/20/17 16:40 36.6 88 20 121/59 99 Nasal Cannula 4 03/20/17 16:30 89 20 129/59 96 Nasal Cannula 4 03/20/17 16:20 83 20 136/65 97 Mask 6 03/20/17 16:10 37.4 83 20 133/59 97 Mask 10 03/20/17 11:42 37.5 85 24 118/70 93 Nasal Cannula 2.0 03/20/17 08:52 94 Nasal Cannula 2.0 03/20/17 08:00 Nasal Cannula 2.0 03/20/17 07:45 37.5 80 25 120/72 94 Nasal Cannula 2.0 Notes Mental Status: alert / awake / arousable, participated in evaluation Pt Amnestic to Procedure: Yes Nausea / Vomiting: adequately controlled Pain: adequately controlled Airway Patency, RR, SpO2: stable & adequate BP & HR: stable & adequate Hydration State: stable & adequate Anesthetic Complications: no major complications apparent
--- NOTE | 2017-03-20 17:05 | Progress Note ---
Internal Med Progress Note Date of Service: March 20, 2017. Provider Documentation: SUBJECTIVE: Patient is status post laparoscopic cholecystectomy today. Drowsy post anesthesia. Patient's pain is well controlled. Denies any chest pain, fever, chills, nausea. OBJECTIVE: Vital Signs-as noted below Exam: General-Drowsy secondary to post anaesthesia Lungs-AEBE decreased bilaterally, no wheezing Heart-S1, S2 normal, no murmurs Abdomen-S/P Laparoscopic cholecystectomy Extremities-Edema Bilaterally Lab data as noted below. ASSESSMENT & PLAN: ASSESSMENT AND PLAN: This 87-year-old male presents with right upper quadrant abdominal pain. CAT scan shows acute cholecystitis. ACUTE CHOLECYSTITIS: Per surgical report - gangrenous cholecystitis S/P Laparoscopic Cholecystectomy with Intraoperative cholangiogram (no filling defect in CBD noted) -IV Fluids -IV Ciprofloxacin/Metronidazole (Day 1) -Work up - MRCP- 1. Bibasilar atelectasis.2. Mild edematous change about the gallbladder suggesting acute cholecystitis.3. Normal appearance to the common bile duct and pancreatic duct.4. Previous described cystic duct stone is not easily identified on this exam most likely secondary to technical lack of resolution. CT abd/pelvis- Cholelithiasis with stone in cystic duct, Diverticulosis. -Surgery on board, appreciate inputs. COPD : -No signs of exacerbation -Continue with spiriva, Inhalers PRN CHRONIC LOWER EXTREMITY EDEMA -On lasix daily, held since admission HX OF CRISTIANE S/P Surgery, not on CPAP DVT PROPHYLAXIS -SCDS DISPOSITION To be determined Vital Signs: Date Time Temp Pulse Resp B/P Pulse Ox O2 Delivery O2 Flow Rate FiO2 03/20/17 18:02 37.1 83 18 124/68 96 Nasal Cannula 4.0 03/20/17 17:32 36.8 82 18 115/65 95 4.0 03/20/17 17:00 36.6 89 18 115/62 91 4.0 03/20/17 17:00 91 Nasal Cannula 4.0 03/20/17 16:50 82 20 121/58 99 Nasal Cannula 4 03/20/17 16:40 36.6 88 20 121/59 99 Nasal Cannula 4 03/20/17 16:30 89 20 129/59 96 Nasal Cannula 4 03/20/17 16:20 83 20 136/65 97 Mask 6 03/20/17 16:10 37.4 83 20 133/59 97 Mask 10 03/20/17 11:42 37.5 85 24 118/70 93 Nasal Cannula 2.0 03/20/17 08:52 94 Nasal Cannula 2.0 03/20/17 08:00 Nasal Cannula 2.0 03/20/17 07:45 37.5 80 25 120/72 94 Nasal Cannula 2.0 03/20/17 00:40 Nasal Cannula 2.0 03/20/17 00:19 37.1 91 16 144/64 91 Nasal Cannula 2.0 03/19/17 23:35 75 18 114/68 93 Nasal Cannula 4.0 03/19/17 22:36 77 23 96 Nasal Cannula 4.0 03/19/17 22:31 125/59 03/19/17 22:06 83 26 95 Nasal Cannula 4.0 03/19/17 22:01 128/58 03/19/17 21:39 83 25 93 03/19/17 21:32 129/65 03/19/17 21:09 92 28 90 03/19/17 21:05 90 Nasal Cannula 4.0 03/19/17 21:04 87 29 84 03/19/17 21:00 138/62 03/19/17 19:38 37.4 95 20 145/82 98 Room Air Lab Results: Results Past 24 Hours Test 03/19/17 20:07 03/19/17 21:15 03/20/17 06:45 03/20/17 12:06 Range/Units White Blood Count 14.35 12.20 4.8-10.8 K/uL Red Blood Count 5.55 4.89 4.7-6.1 M/uL Hemoglobin 17.3 14.7 14.0-18.0 g/dL Hematocrit 50.7 45.4 42-52 % Mean Corpuscular Volume 91.4 92.8 80-100 fL Mean Corpuscular Hemoglobin 31.2 30.1 25-34 pg Mean Corpuscular Hemoglobin Concent 34.1 32.4 32-36 g/dl Platelet Count 193 164 130-400 K/uL Mean Platelet Volume 9.9 9.9 7.4-10.4 fL Neutrophils (%) (Auto) 91.2 88.6 % Lymphocytes (%) (Auto) 2.0 3.9 % Monocytes (%) (Auto) 6.4 7.0 % Eosinophils (%) (Auto) 0.0 0.1 % Basophils (%) (Auto) 0.1 0.2 % Neutrophils # (Auto) 13.07 10.82 1.4-6.5 K/uL Lymphocytes # (Auto) 0.29 0.47 1.2-3.4 K/uL Monocytes # (Auto) 0.92 0.86 0.11-0.59 K/uL Eosinophils # (Auto) 0.00 0.01 0-0.5 K/uL Basophils # (Auto) 0.02 0.02 0-0.2 K/uL RDW Standard Deviation 43.0 45.3 36.4-46.3 fL RDW Coefficient of Variation 12.9 13.3 11.5-14.5 % Immature Granulocyte % (Auto) 0.3 0.2 % Immature Granulocyte # (Auto) 0.05 0.02 0.00-0.02 K/uL Prothrombin Time 10.7 9.0-12.0 SECONDS Prothromb Time International Ratio 1.0 0.9-1.1 Activated Partial Thromboplast Time 29.6 21.0-31.0 SECONDS Partial Thromboplastin Ratio 1.1 Sodium Level 138 141 136-145 mmol/L Potassium Level 4.3 4.5 3.5-5.1 mmol/L Chloride Level 99 102 98-107 mmol/L Carbon Dioxide Level 38 36 21-32 mmol/L Anion Gap 1.0 3.0 3-11 mmol/L Blood Urea Nitrogen 16 20 7-18 mg/dl Creatinine 1.20 1.40 0.60-1.40 mg/dl Est Creatinine Clear Calc Drug Dose 40.0 34.3 ml/min Estimated GFR () 63.1 52.4 Estimated GFR (Non- 54.4 45.2 BUN/Creatinine Ratio 13.7 14.2 10-20 Random Glucose 158 100 70-99 mg/dl Calcium Level 10.1 9.3 8.5-10.1 mg/dl Total Bilirubin 1.7 2.2 0.2-1 mg/dl Direct Bilirubin 0.3 0.3 0-0.2 mg/dl Aspartate Amino Transf (AST/SGOT) 25 29 15-37 U/L Alanine Aminotransferase (ALT/SGPT) 22 25 12-78 U/L Alkaline Phosphatase 86 62 45-117 U/L Total Creatine Kinase 149 39-308 U/L Creatine Kinase MB 2.4 0.5-3.6 ng/ml Creatine Kinase MB Ratio 1.6 0-3.0 Troponin I < 0.015 0-0.045 ng/ml Total Protein 7.5 5.9 6.4-8.2 gm/dl Albumin 3.6 2.8 3.4-5.0 gm/dl Lipase 93 73-393 U/L Urine Color DK YELLOW Urine Appearance CLEAR CLEAR Urine pH 5.5 4.5-7.5 Urine Specific [place] 1.028 1.000-1.030 Urine Protein 1+ NEG Urine Glucose (UA) NEG NEG Urine Ketones TRACE NEG Urine Occult Blood NEG NEG Urine Nitrite NEG NEG Urine Bilirubin NEG NEG Urine Urobilinogen NEG NEG Urine Leukocyte Esterase NEG NEG Urine WBC (Auto) 1-5 0-5 /hpf Urine RBC (Auto) 0-4 0-4 /hpf Urine Hyaline Casts (Auto) 1-5 0-5 /lpf Urine Epithelial Cells (Auto) >30 0-5 /lpf Urine Bacteria (Auto) NEG NEG Urine Renal Epithelial Cells 0-5 0-5 /lpf Estimated Average Glucose 108 mg/dl Hemoglobin A1c 5.4 4.5-5.6 % Magnesium Level 1.9 1.8-2.4 mg/dl Bedside Glucose 80 70-99 mg/dl
[2017-03-21] VITALS (8 sets, daily range): BP systolic 113–121; BP diastolic 62–72; PULSE 79–88; TEMP 36.4–36.8; O2SAT 88–95
[2017-03-21] MEDS: METRONIDAZOLE / NSS 500 MG in PREMIXED NSS 100 ML IV SCH ×3 (00:52→17:07)
[2017-03-21] MEDS: CIPROFLOXACIN / D5W 400 MG in PREMIXED IN D5W 200 ML IV SCH ×2 (00:52→13:12)
[2017-03-21] MEDS: ACETAMINOPHEN 325 MG TAB PO PRN ×2 (05:24→15:46)
[2017-03-21 05:27] LABS: BASO % 0.1 %; BASO ABS # 0.01 K/uL (0-0.2); COMPLETE YES; IG% 0.2 %; LYMPH % 3.2 %; LYMPH ABS # 0.43 K/uL (1.2-3.4); MEAN CORPUSCULAR HEMOGLOBIN 30.9 pg (25-34); MEAN CORPUSCULAR HGB CONC 32.9 g/dl (32-36); MEAN PLATELET VOLUME 9.6 fL (7.4-10.4); MONO % 6.3 %; NEUT % 90.2 %; PLATELET COUNT 133 K/uL (130-400); RED BLOOD COUNT 4.47 M/uL (4.7-6.1); WHITE BLOOD COUNT 13.55 K/uL (4.8-10.8)
[2017-03-21] MEDS: SODIUM CHLORIDE 0.9% 1000ML 1,000 ML IV SCH (05:29)
[2017-03-21] MEDS: LEVOTHYROXINE 100 MCG TAB PO SCH (05:30)
[2017-03-21 05:53] LABS: BUN/CREATININE RATIO 18.7 (10-20); CALCIUM 8.3 mg/dl (8.5-10.1); CREATININE 1.3 mg/dl (0.60-1.40); MAGNESIUM 1.9 mg/dl (1.8-2.4); POTASSIUM 4.5 mmol/L (3.5-5.1)
[2017-03-21 05:57] LABS: ALB/GLOB RATIO 0.8 (0.9-2); PHOSPHORUS 1.7 mg/dl (2.5-4.9)
--- NOTE | 2017-03-21 08:01 | Anesthesiology Progress Note ---
Anesthesia Post Op Note Date & Time March 21, 2017 at 08:02 Vital Signs Pain Intensity: 2.0 Vital Signs Past 12 Hours Date Time Temp Pulse Resp B/P Pulse Ox O2 Delivery O2 Flow Rate FiO2 03/21/17 03:45 36.8 88 16 113/63 95 Nasal Cannula 3.0 03/20/17 22:55 37.1 88 16 119/66 94 Nasal Cannula 4.0 03/20/17 20:46 Nasal Cannula 4.0 Notes Mental Status: alert / awake / arousable, participated in evaluation Pt Amnestic to Procedure: Yes Nausea / Vomiting: adequately controlled Pain: adequately controlled Airway Patency, RR, SpO2: stable & adequate BP & HR: stable & adequate Hydration State: stable & adequate Anesthetic Complications: no major complications apparent
[2017-03-21] MEDS: D5W AND 1/2NSS + 20MEQ KCL 1,000 ML IV SCH ×2 (08:27→17:07)
[2017-03-21] MEDS: TIOTROPIUM BROMIDE 5 PUFF/90 MCG INH INH SCH (08:28)
[2017-03-21] MEDS: MAGNESIUM HYDROXIDE SUSP 30 ML UDC PO SCH ×2 (08:29→21:19)
[2017-03-21] MEDS: DOCUSATE SODIUM/SENNA 50/8.6MG TAB PO SCH ×2 (08:30→21:16)
[2017-03-21] MEDS: RIVASTIGMINE TARTRATE 9.5 MG PATCH TD SCH (08:35)
--- NOTE | 2017-03-21 08:42 | Surgery Progress Note ---
Surgery Progress Note Date of Service March 21, 2017. Subjective No nausea, No vomiting awake, no acute changes drain- serosang- expected valle in place Objective Vital Signs: Date Time Temp Pulse Resp B/P Pulse Ox O2 Delivery O2 Flow Rate FiO2 03/21/17 08:16 94 Nasal Cannula 3.0 03/21/17 08:14 36.7 85 23 116/68 94 Nasal Cannula 3.0 03/21/17 03:45 36.8 88 16 113/63 95 Nasal Cannula 3.0 03/20/17 22:55 37.1 88 16 119/66 94 Nasal Cannula 4.0 03/20/17 20:46 Nasal Cannula 4.0 03/20/17 19:59 36.8 88 20 119/66 93 Nasal Cannula 4.0 03/20/17 19:00 36.3 88 14 121/69 94 Nasal Cannula 4.0 03/20/17 18:02 37.1 83 18 124/68 96 Nasal Cannula 4.0 03/20/17 17:32 36.8 82 18 115/65 95 4.0 03/20/17 17:00 36.6 89 18 115/62 91 4.0 03/20/17 17:00 91 Nasal Cannula 4.0 03/20/17 16:50 82 20 121/58 99 Nasal Cannula 4 03/20/17 16:40 36.6 88 20 121/59 99 Nasal Cannula 4 03/20/17 16:30 89 20 129/59 96 Nasal Cannula 4 03/20/17 16:20 83 20 136/65 97 Mask 6 03/20/17 16:10 37.4 83 20 133/59 97 Mask 10 03/20/17 11:42 37.5 85 24 118/70 93 Nasal Cannula 2.0 03/20/17 08:52 94 Nasal Cannula 2.0 General Appearance: no apparent distress Respiratory/Chest: no respiratory distress Abdomen: normal bowel sounds, + distended Incision(s): intact, drainage Laboratory Results: Results Past 24 Hours Test 03/20/17 12:06 03/21/17 05:16 Range/Units Bedside Glucose 80 70-99 mg/dl White Blood Count 13.55 4.8-10.8 K/uL Red Blood Count 4.47 4.7-6.1 M/uL Hemoglobin 13.8 14.0-18.0 g/dL Hematocrit 42.0 42-52 % Mean Corpuscular Volume 94.0 80-100 fL Mean Corpuscular Hemoglobin 30.9 25-34 pg Mean Corpuscular Hemoglobin Concent 32.9 32-36 g/dl Platelet Count 133 130-400 K/uL Mean Platelet Volume 9.6 7.4-10.4 fL Neutrophils (%) (Auto) 90.2 % Lymphocytes (%) (Auto) 3.2 % Monocytes (%) (Auto) 6.3 % Eosinophils (%) (Auto) 0.0 % Basophils (%) (Auto) 0.1 % Neutrophils # (Auto) 12.23 1.4-6.5 K/uL Lymphocytes # (Auto) 0.43 1.2-3.4 K/uL Monocytes # (Auto) 0.85 0.11-0.59 K/uL Eosinophils # (Auto) 0.00 0-0.5 K/uL Basophils # (Auto) 0.01 0-0.2 K/uL RDW Standard Deviation 46.7 36.4-46.3 fL RDW Coefficient of Variation 13.6 11.5-14.5 % Immature Granulocyte % (Auto) 0.2 % Immature Granulocyte # (Auto) 0.03 0.00-0.02 K/uL Sodium Level 140 136-145 mmol/L Potassium Level 4.5 3.5-5.1 mmol/L Chloride Level 106 98-107 mmol/L Carbon Dioxide Level 31 21-32 mmol/L Anion Gap 3.0 3-11 mmol/L Blood Urea Nitrogen 24 7-18 mg/dl Creatinine 1.30 0.60-1.40 mg/dl Est Creatinine Clear Calc Drug Dose 37.0 ml/min Estimated GFR () 57.3 Estimated GFR (Non- 49.4 BUN/Creatinine Ratio 18.7 10-20 Random Glucose 117 70-99 mg/dl Calcium Level 8.3 8.5-10.1 mg/dl Phosphorus Level 1.7 2.5-4.9 mg/dl Magnesium Level 1.9 1.8-2.4 mg/dl Total Bilirubin 1.4 0.2-1 mg/dl Direct Bilirubin 0.3 0-0.2 mg/dl Aspartate Amino Transf (AST/SGOT) 28 15-37 U/L Alanine Aminotransferase (ALT/SGPT) 27 12-78 U/L Alkaline Phosphatase 51 45-117 U/L Total Protein 5.6 6.4-8.2 gm/dl Albumin 2.4 3.4-5.0 gm/dl Globulin 3.2 2.5-4.0 gm/dl Albumin/Globulin Ratio 0.8 0.9-2 Assessment & Plan 03/21/17- s/p lap bon w/ cholangiogram- no CBD defects, slightly dilated severe gb necrosis with exudate and bilious ascites adv diet/ activity, leave valle today. PT 03/20/17- pt is stable- no acute chgs. Plan for lap bon, possible cholangiogram. may have passed stone through CBD, check MRCP this am - early if possible. Check labs 03/20/17- pt is stable- no acute chgs. Plan for lap bon, possible cholangiogram. may have passed stone through CBD, check MRCP this am - early if possible. Check labs
--- NOTE | 2017-03-21 12:34 | Progress Note ---
Internal Med Progress Note Date of Service: March 21, 2017. Provider Documentation: SUBJECTIVE: Patient is confused, disoriented x 3. Per RN, was trying to pull off his foleys , dressing and lines. Patient's pain is controlled. Denies any chest pain, fever, chills, vomiting, though unable to get good history from him. On regular diet. OBJECTIVE: Vital Signs-as noted below Exam: General - Disoriented x 3, Confused + Lungs-AEBE decreased bilaterally, no wheezing Heart-S1, S2 normal, no murmurs Abdomen-S/P Laparoscopic cholecystectomy- dressing + Extremities-Edema Bilaterally Lab data as noted below. ASSESSMENT & PLAN: ASSESSMENT AND PLAN: This 87-year-old male presents with right upper quadrant abdominal pain. CAT scan shows acute cholecystitis. ACUTE CHOLECYSTITIS: Per surgical report - gangrenous cholecystitis S/P Laparoscopic Cholecystectomy with Intraoperative cholangiogram (no filling defect in CBD noted) -IV Fluids; Tolerating regular diet -IV Ciprofloxacin/Metronidazole (Day 2) -Work up - MRCP- 1. Bibasilar atelectasis.2. Mild edematous change about the gallbladder suggesting acute cholecystitis.3. Normal appearance to the common bile duct and pancreatic duct.4. Previous described cystic duct stone is not easily identified on this exam most likely secondary to technical lack of resolution. CT abd/pelvis- Cholelithiasis with stone in cystic duct, Diverticulosis. -Surgery on board, appreciate inputs. DELIRIUM : Patient is delirious today. Disoriented x 3. Per RN, was pulling his lines, foleys, dressing today -Likely secondary to post operative status, advanced age -May need 1:1 observation COPD : -No signs of exacerbation -Continue with spiriva, Inhalers PRN CHRONIC LOWER EXTREMITY EDEMA -On lasix daily, held since admission HX OF CRISTIANE S/P Surgery, not on CPAP DVT PROPHYLAXIS -SCDS DISPOSITION To be determined Vital Signs: Date Time Temp Pulse Resp B/P Pulse Ox O2 Delivery O2 Flow Rate FiO2 03/21/17 11:56 36.8 84 21 116/72 88 Nasal Cannula 2.0 03/21/17 08:16 94 Nasal Cannula 3.0 03/21/17 08:14 36.7 85 23 116/68 94 Nasal Cannula 3.0 03/21/17 03:45 36.8 88 16 113/63 95 Nasal Cannula 3.0 03/20/17 22:55 37.1 88 16 119/66 94 Nasal Cannula 4.0 03/20/17 20:46 Nasal Cannula 4.0 03/20/17 19:59 36.8 88 20 119/66 93 Nasal Cannula 4.0 03/20/17 19:00 36.3 88 14 121/69 94 Nasal Cannula 4.0 03/20/17 18:02 37.1 83 18 124/68 96 Nasal Cannula 4.0 03/20/17 17:32 36.8 82 18 115/65 95 4.0 03/20/17 17:00 36.6 89 18 115/62 91 4.0 03/20/17 17:00 91 Nasal Cannula 4.0 03/20/17 16:50 82 20 121/58 99 Nasal Cannula 4 03/20/17 16:40 36.6 88 20 121/59 99 Nasal Cannula 4 03/20/17 16:30 89 20 129/59 96 Nasal Cannula 4 03/20/17 16:20 83 20 136/65 97 Mask 6 03/20/17 16:10 37.4 83 20 133/59 97 Mask 10 Lab Results: Results Past 24 Hours Test 03/21/17 05:16 Range/Units White Blood Count 13.55 4.8-10.8 K/uL Red Blood Count 4.47 4.7-6.1 M/uL Hemoglobin 13.8 14.0-18.0 g/dL Hematocrit 42.0 42-52 % Mean Corpuscular Volume 94.0 80-100 fL Mean Corpuscular Hemoglobin 30.9 25-34 pg Mean Corpuscular Hemoglobin Concent 32.9 32-36 g/dl Platelet Count 133 130-400 K/uL Mean Platelet Volume 9.6 7.4-10.4 fL Neutrophils (%) (Auto) 90.2 % Lymphocytes (%) (Auto) 3.2 % Monocytes (%) (Auto) 6.3 % Eosinophils (%) (Auto) 0.0 % Basophils (%) (Auto) 0.1 % Neutrophils # (Auto) 12.23 1.4-6.5 K/uL Lymphocytes # (Auto) 0.43 1.2-3.4 K/uL Monocytes # (Auto) 0.85 0.11-0.59 K/uL Eosinophils # (Auto) 0.00 0-0.5 K/uL Basophils # (Auto) 0.01 0-0.2 K/uL RDW Standard Deviation 46.7 36.4-46.3 fL RDW Coefficient of Variation 13.6 11.5-14.5 % Immature Granulocyte % (Auto) 0.2 % Immature Granulocyte # (Auto) 0.03 0.00-0.02 K/uL Sodium Level 140 136-145 mmol/L Potassium Level 4.5 3.5-5.1 mmol/L Chloride Level 106 98-107 mmol/L Carbon Dioxide Level 31 21-32 mmol/L Anion Gap 3.0 3-11 mmol/L Blood Urea Nitrogen 24 7-18 mg/dl Creatinine 1.30 0.60-1.40 mg/dl Est Creatinine Clear Calc Drug Dose 37.0 ml/min Estimated GFR () 57.3 Estimated GFR (Non- 49.4 BUN/Creatinine Ratio 18.7 10-20 Random Glucose 117 70-99 mg/dl Calcium Level 8.3 8.5-10.1 mg/dl Phosphorus Level 1.7 2.5-4.9 mg/dl Magnesium Level 1.9 1.8-2.4 mg/dl Total Bilirubin 1.4 0.2-1 mg/dl Direct Bilirubin 0.3 0-0.2 mg/dl Aspartate Amino Transf (AST/SGOT) 28 15-37 U/L Alanine Aminotransferase (ALT/SGPT) 27 12-78 U/L Alkaline Phosphatase 51 45-117 U/L Total Protein 5.6 6.4-8.2 gm/dl Albumin 2.4 3.4-5.0 gm/dl Globulin 3.2 2.5-4.0 gm/dl Albumin/Globulin Ratio 0.8 0.9-2
[2017-03-21] MEDS ORDERED: HALOPERIDOL LACTATE 5 MG/ML 1 ML VIAL IM ONE (17:00)
[2017-03-21] MEDS ORDERED: NURSING VERBAL MED ORDER ONE (17:00)
[2017-03-22] MEDS: CIPROFLOXACIN / D5W 400 MG in PREMIXED IN D5W 200 ML IV SCH ×2 (00:57→13:02)
[2017-03-22] MEDS: METRONIDAZOLE / NSS 500 MG in PREMIXED NSS 100 ML IV SCH ×3 (00:57→16:33)
[2017-03-22] MEDS: D5W AND 1/2NSS + 20MEQ KCL 1,000 ML IV SCH (02:23)
[2017-03-22] MEDS: LEVOTHYROXINE 100 MCG TAB PO SCH (06:14)
[2017-03-22 07:08] LABS: BASO % 0.1 %; BASO ABS # 0.01 K/uL (0-0.2); COMPLETE YES; EOS % 1.1 %; HEMATOCRIT 41.5 % (42-52); IG% 0.2 %; LYMPH % 6.2 %; LYMPH ABS # 0.58 K/uL (1.2-3.4); MEAN CELL VOLUME 94.7 fL (80-100); MEAN CORPUSCULAR HEMOGLOBIN 30.8 pg (25-34); MEAN CORPUSCULAR HGB CONC 32.5 g/dl (32-36); MEAN PLATELET VOLUME 10.2 fL (7.4-10.4); MONO % 5.8 %; NEUT % 86.6 %; PLATELET COUNT 145 K/uL (130-400); RED BLOOD COUNT 4.38 M/uL (4.7-6.1); WHITE BLOOD COUNT 9.36 K/uL (4.8-10.8)
--- NOTE | 2017-03-22 07:38 | Surgery Progress Note ---
Surgery Progress Note Date of Service March 22, 2017. Subjective No nausea, No vomiting more alert, vitals stablee Objective Vital Signs: Date Time Temp Pulse Resp B/P Pulse Ox O2 Delivery O2 Flow Rate FiO2 03/21/17 23:50 Nasal Cannula 2.0 03/21/17 23:08 36.6 79 18 121/71 94 2.0 03/21/17 19:19 36.7 84 16 114/70 92 Nasal Cannula 2.0 03/21/17 15:18 36.4 85 18 114/62 94 Nasal Cannula 2.0 03/21/17 15:15 Nasal Cannula 2.0 03/21/17 14:55 87 93 03/21/17 11:56 36.8 84 21 116/72 88 Nasal Cannula 2.0 03/21/17 08:45 2.0 03/21/17 08:16 94 Nasal Cannula 3.0 03/21/17 08:14 36.7 85 23 116/68 94 Nasal Cannula 3.0 Respiratory/Chest: no respiratory distress Abdomen: + distended (mild distention) Incision(s): intact, drainage (serous) Laboratory Results: Results Past 24 Hours Test 03/22/17 06:32 Range/Units White Blood Count 9.36 4.8-10.8 K/uL Red Blood Count 4.38 4.7-6.1 M/uL Hemoglobin 13.5 14.0-18.0 g/dL Hematocrit 41.5 42-52 % Mean Corpuscular Volume 94.7 80-100 fL Mean Corpuscular Hemoglobin 30.8 25-34 pg Mean Corpuscular Hemoglobin Concent 32.5 32-36 g/dl Platelet Count 145 130-400 K/uL Mean Platelet Volume 10.2 7.4-10.4 fL Neutrophils (%) (Auto) 86.6 % Lymphocytes (%) (Auto) 6.2 % Monocytes (%) (Auto) 5.8 % Eosinophils (%) (Auto) 1.1 % Basophils (%) (Auto) 0.1 % Neutrophils # (Auto) 8.11 1.4-6.5 K/uL Lymphocytes # (Auto) 0.58 1.2-3.4 K/uL Monocytes # (Auto) 0.54 0.11-0.59 K/uL Eosinophils # (Auto) 0.10 0-0.5 K/uL Basophils # (Auto) 0.01 0-0.2 K/uL RDW Standard Deviation 47.6 36.4-46.3 fL RDW Coefficient of Variation 13.6 11.5-14.5 % Immature Granulocyte % (Auto) 0.2 % Immature Granulocyte # (Auto) 0.02 0.00-0.02 K/uL Assessment & Plan 03/22/17-overall improved- very weak- may need rehab/ extended care leave drain, adv diet, cont atbx, PT, can d/c valle when pt more mobile 03/21/17- s/p lap bon w/ cholangiogram- no CBD defects, slightly dilated severe gb necrosis with exudate and bilious ascites adv diet/ activity, leave valle today. PT 03/20/17- pt is stable- no acute chgs. Plan for lap bon, possible cholangiogram. may have passed stone through CBD, check MRCP this am - early if possible. Check labs 03/21/17- s/p lap bon w/ cholangiogram- no CBD defects, slightly dilated severe gb necrosis with exudate and bilious ascites adv diet/ activity, leave valle today. PT 03/20/17- pt is stable- no acute chgs. Plan for lap bon, possible cholangiogram. may have passed stone through CBD, check MRCP this am - early if possible. Check labs
[2017-03-22 07:45] LABS: BUN/CREATININE RATIO 17.1 (10-20); CALCIUM 8.2 mg/dl (8.5-10.1); MAGNESIUM 2.2 mg/dl (1.8-2.4); POTASSIUM 4.4 mmol/L (3.5-5.1)
[2017-03-22 07:58] VITALS: BP 128/74; PULSE 80; TEMP 37.1; O2SAT 92
[2017-03-22 08:15] VITALS: O2SAT 93
[2017-03-22] MEDS: MAGNESIUM HYDROXIDE SUSP 30 ML UDC PO SCH ×2 (08:24→21:27)
[2017-03-22] MEDS: TIOTROPIUM BROMIDE 5 PUFF/90 MCG INH INH SCH (08:24)
[2017-03-22] MEDS: RIVASTIGMINE TARTRATE 9.5 MG PATCH TD SCH (08:25)
[2017-03-22] MEDS: DOCUSATE SODIUM/SENNA 50/8.6MG TAB PO SCH ×2 (08:25→21:28)
[2017-03-22 08:39] VITALS: O2SAT 92
[2017-03-22 11:49] VITALS: BP 124/66; PULSE 82; TEMP 37.6; O2SAT 94
--- NOTE | 2017-03-22 12:40 | Progress Note ---
Internal Med Progress Note Date of Service: March 22, 2017. Provider Documentation: SUBJECTIVE: Patient is much better today. Awake, alert , oriented x 2, sitting in chair. Patient's pain is controlled. Denies any chest pain, fever, chills, vomiting, though unable to get good history from him. Tolerating diet well OBJECTIVE: Vital Signs-as noted below Exam: General - Awake, alert, oriented x 2 Lungs-AEBE decreased bilaterally, no wheezing Heart-S1, S2 normal, no murmurs Abdomen-S/P Laparoscopic cholecystectomy- dressing + Extremities-Edema Bilaterally - Foleys catheter + Lab data as noted below. ASSESSMENT & PLAN: ASSESSMENT AND PLAN: This 87-year-old male presents with right upper quadrant abdominal pain. CAT scan shows acute cholecystitis. ACUTE CHOLECYSTITIS: Per surgical report - gangrenous cholecystitis S/P Laparoscopic Cholecystectomy with Intraoperative cholangiogram (no filling defect in CBD noted) -IV Fluids - Ok to discontinue as was on lasix at home and on diet; Tolerating regular diet -IV Ciprofloxacin/Metronidazole (Day 3) -Work up - MRCP- 1. Bibasilar atelectasis.2. Mild edematous change about the gallbladder suggesting acute cholecystitis.3. Normal appearance to the common bile duct and pancreatic duct.4. Previous described cystic duct stone is not easily identified on this exam most likely secondary to technical lack of resolution. CT abd/pelvis- Cholelithiasis with stone in cystic duct, Diverticulosis. -Surgery on board, appreciate inputs. DELIRIUM : Resolved Patient was delirious post operatively. Resolved within 24 hours. Required one dose of Haldol only on 03/21 AAOX2 now. -Likely secondary to post operative status, advanced age -Monitor COPD : -No signs of exacerbation -Continue with spiriva, Inhalers PRN CHRONIC LOWER EXTREMITY EDEMA -On lasix daily, held since admission HX OF CRISTIANE S/P Surgery, not on CPAP DVT PROPHYLAXIS -SCDS DISPOSITION May require rehab PT/OT ordered Vital Signs: Date Time Temp Pulse Resp B/P Pulse Ox O2 Delivery O2 Flow Rate FiO2 03/22/17 11:49 37.6 82 22 124/66 94 Nasal Cannula 2.0 03/22/17 08:39 92 Nasal Cannula 2.0 03/22/17 08:15 93 Nasal Cannula 2.0 03/22/17 07:58 37.1 80 22 128/74 92 Nasal Cannula 2.0 03/21/17 23:50 Nasal Cannula 2.0 03/21/17 23:08 36.6 79 18 121/71 94 2.0 03/21/17 19:19 36.7 84 16 114/70 92 Nasal Cannula 2.0 03/21/17 15:18 36.4 85 18 114/62 94 Nasal Cannula 2.0 03/21/17 15:15 Nasal Cannula 2.0 03/21/17 14:55 87 93 Lab Results: Results Past 24 Hours Test 03/22/17 06:32 Range/Units White Blood Count 9.36 4.8-10.8 K/uL Red Blood Count 4.38 4.7-6.1 M/uL Hemoglobin 13.5 14.0-18.0 g/dL Hematocrit 41.5 42-52 % Mean Corpuscular Volume 94.7 80-100 fL Mean Corpuscular Hemoglobin 30.8 25-34 pg Mean Corpuscular Hemoglobin Concent 32.5 32-36 g/dl Platelet Count 145 130-400 K/uL Mean Platelet Volume 10.2 7.4-10.4 fL Neutrophils (%) (Auto) 86.6 % Lymphocytes (%) (Auto) 6.2 % Monocytes (%) (Auto) 5.8 % Eosinophils (%) (Auto) 1.1 % Basophils (%) (Auto) 0.1 % Neutrophils # (Auto) 8.11 1.4-6.5 K/uL Lymphocytes # (Auto) 0.58 1.2-3.4 K/uL Monocytes # (Auto) 0.54 0.11-0.59 K/uL Eosinophils # (Auto) 0.10 0-0.5 K/uL Basophils # (Auto) 0.01 0-0.2 K/uL RDW Standard Deviation 47.6 36.4-46.3 fL RDW Coefficient of Variation 13.6 11.5-14.5 % Immature Granulocyte % (Auto) 0.2 % Immature Granulocyte # (Auto) 0.02 0.00-0.02 K/uL Sodium Level 140 136-145 mmol/L Potassium Level 4.4 3.5-5.1 mmol/L Chloride Level 105 98-107 mmol/L Carbon Dioxide Level 36 21-32 mmol/L Anion Gap -1.0 3-11 mmol/L Blood Urea Nitrogen 17 7-18 mg/dl Creatinine 1.00 0.60-1.40 mg/dl Est Creatinine Clear Calc Drug Dose 48.0 ml/min Estimated GFR () 78.6 Estimated GFR (Non- 67.8 BUN/Creatinine Ratio 17.1 10-20 Random Glucose 117 70-99 mg/dl Calcium Level 8.2 8.5-10.1 mg/dl Magnesium Level 2.2 1.8-2.4 mg/dl
[2017-03-22 15:41] VITALS: BP 154/84; PULSE 89; TEMP 36.8; O2SAT 91
[2017-03-22 23:25] VITALS: BP 160/95; PULSE 104; TEMP 37.8; O2SAT 92
[2017-03-23] VITALS (16 sets, daily range): BP systolic 109–172; BP diastolic 71–98; PULSE 83–135; TEMP 36.5–37.5; O2SAT 70–97
[2017-03-23] MEDS: METRONIDAZOLE / NSS 500 MG in PREMIXED NSS 100 ML IV SCH (00:42)
[2017-03-23] MEDS: CIPROFLOXACIN / D5W 400 MG in PREMIXED IN D5W 200 ML IV SCH (00:42)
[2017-03-23] MEDS: LEVALBUTEROL 1.25MG/0.5ML NEB INH PRN ×2 (03:47→19:38)
[2017-03-23] MEDS: IPRATROPIUM BROMIDE NEB SOLN 0.02% 2.5 ML VIAL INH PRN ×2 (03:47→19:38)
[2017-03-23] MEDS ORDERED: LEVALBUTEROL/IPRATROPIUM NEB INH STA (04:24)
[2017-03-23] MEDS ORDERED: LEVALBUTEROL/IPRATROPIUM NEB INH PRN (04:30)
[2017-03-23] MEDS ORDERED: FUROSEMIDE INJ 40 MG in SYRINGE 0 ML IV STA (04:39)
[2017-03-23] MEDS ORDERED: LEVALBUTEROL 1.25MG/0.5ML NEB INH STA (04:42)
[2017-03-23] MEDS ORDERED: IPRATROPIUM BROMIDE NEB SOLN 0.02% 2.5 ML VIAL INH STA (04:42)
[2017-03-23] MEDS ORDERED: LEVALBUTEROL 1.25MG/0.5ML NEB INH PRN (04:45)
[2017-03-23] MEDS ORDERED: IPRATROPIUM BROMIDE NEB SOLN 0.02% 2.5 ML VIAL INH PRN (04:45)
--- NOTE | 2017-03-23 04:56 | Progress Note ---
Internal Med Progress Note Date of Service: March 23, 2017. Provider Documentation: SUBJECTIVE: Made aware by RN around 420 AM of sudden resp distress px wheezing O2 sats 70% on 3L sob as per px px denies cp, cough sx OBJECTIVE: Vital Signs-as noted below Exam: General-resp distress, anxious HEENT -pink palp conjunctivae, dry buccal mucosa, O2 mask on Neck-supple Lungs-exp wheezes Heart-tachycardic Abdomen-soft Extremities-min edema, no tenderness CXR as per my interpretation : min congestion; atelectasis ASSESSMENT & PLAN: Acute (?on chronic) hypoxemic resp failure 2 to pulm congestion hx COPD as per records BIPAP now ABG stat IV Lasix nebs RTC, prn solu-medrol 1 dose (incomplete response to initial stat neb tx) consider resumption of home Lasix May need transfer to monitored unit if w/o improvement after initial intervention. Will relay developments to AM provider. Vital Signs: Date Time Temp Pulse Resp B/P Pulse Ox O2 Delivery O2 Flow Rate FiO2 03/23/17 05:09 116 96 BiPAP 80 03/23/17 04:58 118 30 96 BiPAP/CPAP 80 03/23/17 04:45 125 95 80 03/23/17 04:02 37.5 135 28 172/98 90 Nasal Cannula 10.0 03/23/17 03:48 123 30 91 Diffusion Mask 10.0 03/23/17 03:15 90 Mask 10.0 03/23/17 03:10 70 Nasal Cannula 3.0 03/23/17 00:30 Nasal Cannula 3.0 03/23/17 00:18 37.5 106 168/94 94 Nasal Cannula 3.0 03/22/17 23:25 37.8 104 20 160/95 92 Nasal Cannula 3.0 03/22/17 15:41 36.8 89 18 154/84 91 Nasal Cannula 3.0 03/22/17 15:15 Nasal Cannula 3.0 03/22/17 11:49 37.6 82 22 124/66 94 Nasal Cannula 2.0 03/22/17 08:39 92 Nasal Cannula 2.0 03/22/17 08:15 93 Nasal Cannula 2.0 03/22/17 07:58 37.1 80 22 128/74 92 Nasal Cannula 2.0 Lab Results: Results Past 24 Hours Test 03/23/17 05:10 Range/Units White Blood Count 10.72 4.8-10.8 K/uL Red Blood Count 4.74 4.7-6.1 M/uL Hemoglobin 14.6 14.0-18.0 g/dL Hematocrit 43.7 42-52 % Mean Corpuscular Volume 92.2 80-100 fL Mean Corpuscular Hemoglobin 30.8 25-34 pg Mean Corpuscular Hemoglobin Concent 33.4 32-36 g/dl Platelet Count 197 130-400 K/uL Mean Platelet Volume 9.7 7.4-10.4 fL Neutrophils (%) (Auto) 85.7 % Lymphocytes (%) (Auto) 3.2 % Monocytes (%) (Auto) 10.0 % Eosinophils (%) (Auto) 0.5 % Basophils (%) (Auto) 0.2 % Neutrophils # (Auto) 9.20 1.4-6.5 K/uL Lymphocytes # (Auto) 0.34 1.2-3.4 K/uL Monocytes # (Auto) 1.07 0.11-0.59 K/uL Eosinophils # (Auto) 0.05 0-0.5 K/uL Basophils # (Auto) 0.02 0-0.2 K/uL RDW Standard Deviation 44.8 36.4-46.3 fL RDW Coefficient of Variation 13.2 11.5-14.5 % Immature Granulocyte % (Auto) 0.4 % Immature Granulocyte # (Auto) 0.04 0.00-0.02 K/uL Activated Partial Thromboplast Time 35.5 21.0-31.0 SECONDS Partial Thromboplastin Ratio 1.4 Arterial Blood pH 7.40 7.35-7.45 Arterial Blood Partial Pressure CO2 47 35-46 mmHg Arterial Blood Partial Pressure O2 119 80-95 mm/Hg Arterial Blood HCO3 28 19-24 mmol/L Arterial Blood Oxygen Saturation 98.4 90-95 % Arterial Blood Base Excess 2.8 -9-1.8 mEq/L Arterial Blood Gas Delivery 80% BIPAP Francois Test POS POS Sodium Level 139 136-145 mmol/L Potassium Level 4.6 3.5-5.1 mmol/L Chloride Level 103 98-107 mmol/L Carbon Dioxide Level 32 21-32 mmol/L Anion Gap 4.0 3-11 mmol/L Blood Urea Nitrogen 13 7-18 mg/dl Creatinine 0.95 0.60-1.40 mg/dl Est Creatinine Clear Calc Drug Dose 50.6 ml/min Estimated GFR () 83.7 Estimated GFR (Non- 72.2 BUN/Creatinine Ratio 13.2 10-20 Random Glucose 156 70-99 mg/dl Calcium Level 8.5 8.5-10.1 mg/dl Magnesium Level 2.1 1.8-2.4 mg/dl
[2017-03-23] MEDS ORDERED: METHYLPREDNISOLONE IV 20 MG in SYRINGE 0 ML IV STA (05:03)
[2017-03-23 05:21] LABS: BASO % 0.2 %; BASO ABS # 0.02 K/uL (0-0.2); COMPLETE YES; EOS % 0.5 %; HEMATOCRIT 43.7 % (42-52); IG% 0.4 %; LYMPH % 3.2 %; LYMPH ABS # 0.34 K/uL (1.2-3.4); MEAN CELL VOLUME 92.2 fL (80-100); MEAN CORPUSCULAR HEMOGLOBIN 30.8 pg (25-34); MEAN CORPUSCULAR HGB CONC 33.4 g/dl (32-36); MEAN PLATELET VOLUME 9.7 fL (7.4-10.4); NEUT % 85.7 %; PLATELET COUNT 197 K/uL (130-400); RED BLOOD COUNT 4.74 M/uL (4.7-6.1); WHITE BLOOD COUNT 10.72 K/uL (4.8-10.8)
[2017-03-23 05:25] LABS: ARTERIAL BLD GAS O2 SATURATION 98.4 % (90-95); ARTERIAL BLOOD GAS BASE EXCESS 2.8 mEq/L (-9-1.8); ARTERIAL BLOOD GAS HCO3 28 mmol/L (19-24); ARTERIAL BLOOD GAS PO2 119 mm/Hg (80-95)
[2017-03-23 05:27] LABS: ALLEN TEST POS (POS); O2 ADMINISTRATION 80% BIPAP
[2017-03-23 05:38] LABS: PARTIAL THROMBOPLASTIN RATIO 1.4
[2017-03-23 05:40] LABS: BUN/CREATININE RATIO 13.2 (10-20); CALCIUM 8.5 mg/dl (8.5-10.1); CREATININE 0.95 mg/dl (0.60-1.40); MAGNESIUM 2.1 mg/dl (1.8-2.4); POTASSIUM 4.6 mmol/L (3.5-5.1)
--- NOTE | 2017-03-23 06:34 | Discharge Instructions ---
Discharge Instructions Date of Service March 23, 2017. Admission Reason for Admission: Cholecystitis Discharge Discharge Diagnosis / Problem: necrotizing cholecystitis, pulmonary edema Discharge Goals Goal(s): Decrease discomfort, Improve function, Improve disease control Activity Recommendations Activity Limitations: as noted below Lifting Limitations: gradually increase as tolerated Exercise/Sports Limitations: until after follow-up appointment May Resume Sexual Activity: after follow-up appointment Shower/Bathe: tomorrow (may shower) SPECIAL CARE INSTRUCTIONS: * Cover incisions and change daily for comfort/drainage. * Empty drain 2-3 times per day and record - if drain in place when discharged * May use ibuprofen for pain as tolerated. * Expect some swelling and bruising. Call your doctor if: * Temperature above 101 degrees * Pain not relieved by pain medicine ordered * There is increased drainage or redness from any incision * You have any unanswered questions or concerns [phone]. FOLLOW UP VISIT: If not already scheduled, please call the office for a follow-up visit. please call for appointment OFFICE PHONE NUMBER: Dr. Wilkinson Office . Current Hospital Diet Patient's current hospital diet: Regular Diet Discharge Diet Recommended Diet: Regular Diet Procedures Procedures Performed: Laparoscopic Cholecystectomy, with Intraoperative Cholangiogram Pending Studies Studies pending at discharge: no Laboratory Results Hemoglobin A1c Test 03/20/17 06:45 Range/Units Estimated Average Glucose 108 mg/dl Hemoglobin A1c 5.4 4.5-5.6 % Medical Emergencies . Who to Call and When: Medical Emergencies: If at any time you feel your situation is an emergency, please call 911 immediately. . Non-Emergent Contact Non-Emergency issues call your: Primary Care Provider, Surgeon . "Provider Documentation" section prepared by Nicholas Wilkinson. . VTE Core Measure Inpt VTE Proph given/why not?: Unfractionated heparin SQ, SCD's
--- NOTE | 2017-03-23 06:35 | DIAGNOSTIC IMAGING REPORT ---
CHEST ONE VIEW PORTABLE CLINICAL HISTORY: sob COMPARISON STUDY: 03/19/2017 FINDINGS: The patient is taken a suboptimal inspiration. There are low lung volumes. There is right atelectasis/consolidation. There is mild vascular prominence which may be accentuated by the suboptimal inspiration.[ IMPRESSION: 1. Low lung volumes with right basilar atelectasis/consolidation 2. Mild vascular prominence Electronically signed by: Sebastian Montero M.D. 03/23/2017 6:34 AM Dictated Date/Time: 03/23/2017 6:33 AM
--- NOTE | 2017-03-23 06:42 | Surgery Progress Note ---
Surgery Progress Note Date of Service March 23, 2017. Subjective respiratory distress during evening- responding to diuresis drain- serosang- expected, no bm yet Objective Vital Signs: Date Time Temp Pulse Resp B/P Pulse Ox O2 Delivery O2 Flow Rate FiO2 03/23/17 05:09 116 96 BiPAP 80 03/23/17 04:58 118 30 96 BiPAP/CPAP 80 03/23/17 04:45 125 95 80 03/23/17 04:02 37.5 135 28 172/98 90 Nasal Cannula 10.0 03/23/17 03:48 123 30 91 Diffusion Mask 10.0 03/23/17 03:15 90 Mask 10.0 03/23/17 03:10 70 Nasal Cannula 3.0 03/23/17 00:30 Nasal Cannula 3.0 03/23/17 00:18 37.5 106 168/94 94 Nasal Cannula 3.0 03/22/17 23:25 37.8 104 20 160/95 92 Nasal Cannula 3.0 03/22/17 15:41 36.8 89 18 154/84 91 Nasal Cannula 3.0 03/22/17 15:15 Nasal Cannula 3.0 03/22/17 11:49 37.6 82 22 124/66 94 Nasal Cannula 2.0 03/22/17 08:39 92 Nasal Cannula 2.0 03/22/17 08:15 93 Nasal Cannula 2.0 03/22/17 07:58 37.1 80 22 128/74 92 Nasal Cannula 2.0 General Appearance: + mild distress (tachypnea) Abdomen: normal bowel sounds (active bowel sounds), + distended Incision(s): intact Laboratory Results: Results Past 24 Hours Test 03/23/17 05:10 Range/Units White Blood Count 10.72 4.8-10.8 K/uL Red Blood Count 4.74 4.7-6.1 M/uL Hemoglobin 14.6 14.0-18.0 g/dL Hematocrit 43.7 42-52 % Mean Corpuscular Volume 92.2 80-100 fL Mean Corpuscular Hemoglobin 30.8 25-34 pg Mean Corpuscular Hemoglobin Concent 33.4 32-36 g/dl Platelet Count 197 130-400 K/uL Mean Platelet Volume 9.7 7.4-10.4 fL Neutrophils (%) (Auto) 85.7 % Lymphocytes (%) (Auto) 3.2 % Monocytes (%) (Auto) 10.0 % Eosinophils (%) (Auto) 0.5 % Basophils (%) (Auto) 0.2 % Neutrophils # (Auto) 9.20 1.4-6.5 K/uL Lymphocytes # (Auto) 0.34 1.2-3.4 K/uL Monocytes # (Auto) 1.07 0.11-0.59 K/uL Eosinophils # (Auto) 0.05 0-0.5 K/uL Basophils # (Auto) 0.02 0-0.2 K/uL RDW Standard Deviation 44.8 36.4-46.3 fL RDW Coefficient of Variation 13.2 11.5-14.5 % Immature Granulocyte % (Auto) 0.4 % Immature Granulocyte # (Auto) 0.04 0.00-0.02 K/uL Activated Partial Thromboplast Time 35.5 21.0-31.0 SECONDS Partial Thromboplastin Ratio 1.4 Arterial Blood pH 7.40 7.35-7.45 Arterial Blood Partial Pressure CO2 47 35-46 mmHg Arterial Blood Partial Pressure O2 119 80-95 mm/Hg Arterial Blood HCO3 28 19-24 mmol/L Arterial Blood Oxygen Saturation 98.4 90-95 % Arterial Blood Base Excess 2.8 -9-1.8 mEq/L Arterial Blood Gas Delivery 80% BIPAP Francois Test POS POS Sodium Level 139 136-145 mmol/L Potassium Level 4.6 3.5-5.1 mmol/L Chloride Level 103 98-107 mmol/L Carbon Dioxide Level 32 21-32 mmol/L Anion Gap 4.0 3-11 mmol/L Blood Urea Nitrogen 13 7-18 mg/dl Creatinine 0.95 0.60-1.40 mg/dl Est Creatinine Clear Calc Drug Dose 50.6 ml/min Estimated GFR () 83.7 Estimated GFR (Non- 72.2 BUN/Creatinine Ratio 13.2 10-20 Random Glucose 156 70-99 mg/dl Calcium Level 8.5 8.5-10.1 mg/dl Magnesium Level 2.1 1.8-2.4 mg/dl Assessment & Plan 03/23/17- respiratory difficulties- likely pulmonary edema from mult factors incl immobility, abd distention - stop IV fluids, stop IV atbx - begin Augmentin for one more week PO. Has active bowel sounds GI function should improve. Will prob need addnl 3-4 days in hospital. d/c drain Sunday- Dr Fontenot covering over weekend 03/22/17-overall improved- very weak- may need rehab/ extended care leave drain, adv diet, cont atbx, PT, can d/c valle when pt more mobile 03/21/17- s/p lap bon w/ cholangiogram- no CBD defects, slightly dilated severe gb necrosis with exudate and bilious ascites adv diet/ activity, leave valle today. PT 03/20/17- pt is stable- no acute chgs. Plan for lap bon, possible cholangiogram. may have passed stone through CBD, check MRCP this am - early if possible. Check labs 03/22/17-overall improved- very weak- may need rehab/ extended care leave drain, adv diet, cont atbx, PT, can d/c valle when pt more mobile 03/21/17- s/p lap bon w/ cholangiogram- no CBD defects, slightly dilated severe gb necrosis with exudate and bilious ascites adv diet/ activity, leave valle today. PT 03/20/17- pt is stable- no acute chgs. Plan for lap bon, possible cholangiogram. may have passed stone through CBD, check MRCP this am - early if possible. Check labs
[2017-03-23] MEDS: LEVOTHYROXINE 100 MCG TAB PO SCH (07:28)
[2017-03-23] MEDS: IPRATROPIUM BROMIDE NEB SOLN 0.02% 2.5 ML VIAL INH SCH ×2 (08:00→14:39)
[2017-03-23] MEDS: LEVALBUTEROL 1.25MG/0.5ML NEB INH SCH ×2 (08:01→14:39)
[2017-03-23] MEDS: HEPARIN SOD 5000 UNIT/0.5 ML CARP SQ SCH ×2 (08:28→19:18)
[2017-03-23] MEDS: MAGNESIUM HYDROXIDE SUSP 30 ML UDC PO SCH ×2 (08:31→20:35)
[2017-03-23] MEDS: AMOXICILLIN/CLAVULANATE TAB 500 MG TAB PO SCH ×3 (08:31→18:03)
[2017-03-23] MEDS: DOCUSATE SODIUM/SENNA 50/8.6MG TAB PO SCH ×2 (08:31→20:35)
[2017-03-23] MEDS: RIVASTIGMINE TARTRATE 9.5 MG PATCH TD SCH (08:31)
[2017-03-23] MEDS: TIOTROPIUM BROMIDE 5 PUFF/90 MCG INH INH SCH (08:32)
[2017-03-23] MEDS: RIVASTIGMINE REMOVE SCH (08:42)
[2017-03-23] MEDS ORDERED: LEVALBUTEROL/IPRATROPIUM NEB INH SCH (09:00)
--- NOTE | 2017-03-23 10:14 | Progress Note ---
Internal Med Progress Note Date of Service: March 23, 2017. Provider Documentation: SUBJECTIVE: Patient deteriorated clinically overnight---> went into acute hypoxic failure/ respiratory distress. CXR showed CHF. Was given a dose of IV lasix 40 mg and started on BIPAP. Doing better today AM---> On 6 L oxygen. Off BIPAP and not in distress. Awake, alert, eating his breakfast, but confused- disoriented x 2. Patient's pain is controlled. Denies any chest pain, fever, chills, vomiting, though unable to get good history from him. OBJECTIVE: Vital Signs-as noted below Exam: General - Awake, alert, disoriented x 2 Lungs-AEBE decreased bilaterally, few bibasilar crackles Heart-S1, S2 normal, no murmurs Abdomen-S/P Laparoscopic cholecystectomy- dressing + Extremities-Edema Bilaterally - Foleys catheter + Lab data as noted below. ASSESSMENT & PLAN: ASSESSMENT AND PLAN: This 87-year-old male presents with right upper quadrant abdominal pain. CAT scan shows acute cholecystitis. FLUID OVERLOAD: Patient was on lasix 40 mg at home. Was held on admission for cholecystitis. Post operatively was given IV Fluids x 24 hours. Was discontinued 5/18 AM, went into respiratory distress overnight. CXR- fluid overload. ABGs- Hypoxia with no CO2 retention. No prior hx of CHF noted. On Lasix at home because of chronic LE edema ?? -Placed on BIPAP overnight---> now on 6 L and comfortable and not in distress -Will continue with IV lasix 40 mg. -I/OS, Foleys in place -Will order Echo as last one on file was in 2010. ACUTE CHOLECYSTITIS: Per surgical report - gangrenous cholecystitis S/P Laparoscopic Cholecystectomy with Intraoperative cholangiogram (no filling defect in CBD noted) -IV Fluids - Ok to discontinue as was on lasix at home and on diet; Tolerating regular diet -IV Ciprofloxacin/Metronidazole (Day 4)--> Change to PO to minimize the fluid intake -Work up - MRCP- 1. Bibasilar atelectasis.2. Mild edematous change about the gallbladder suggesting acute cholecystitis.3. Normal appearance to the common bile duct and pancreatic duct.4. Previous described cystic duct stone is not easily identified on this exam most likely secondary to technical lack of resolution. CT abd/pelvis- Cholelithiasis with stone in cystic duct, Diverticulosis. -Surgery on board, appreciate inputs. DELIRIUM : Patient was delirious post operatively. Resolved within 24 hours. Required one dose of Haldol only on 03/21. Improved on 03/22 but again more disoriented today, but awake, alert -Likely secondary to post operative status, advanced age, Respiratory failure/ Hypoxia -Monitor COPD : -No signs of exacerbation -Continue with spiriva, Inhalers change to QID from PRN due to resp distress. No indication of steroids as not in exacerbation. Received IV solu medrol x 1 dose yesterday night. CHRONIC LOWER EXTREMITY EDEMA -On lasix daily at home -Mx as above HX OF CRISTIANE S/P Surgery, not on CPAP DVT PROPHYLAXIS -SCDS DISPOSITION Will likely require rehab PT/OT ordered Medical mx in progress Discussed with clifford by bedside yesterday Vital Signs: Date Time Temp Pulse Resp B/P Pulse Ox O2 Delivery O2 Flow Rate FiO2 03/23/17 08:01 100 96 60 03/23/17 08:01 100 26 96 BiPAP/CPAP 60 03/23/17 07:25 37.3 105 20 109/71 94 60 103 03/23/17 05:09 116 96 BiPAP 80 03/23/17 04:58 118 30 96 BiPAP/CPAP 80 03/23/17 04:45 125 95 80 03/23/17 04:02 37.5 135 28 172/98 90 Nasal Cannula 10.0 03/23/17 03:48 123 30 91 Diffusion Mask 10.0 03/23/17 03:15 90 Mask 10.0 03/23/17 03:10 70 Nasal Cannula 3.0 03/23/17 00:30 Nasal Cannula 3.0 03/23/17 00:18 37.5 106 168/94 94 Nasal Cannula 3.0 03/22/17 23:25 37.8 104 20 160/95 92 Nasal Cannula 3.0 03/22/17 15:41 36.8 89 18 154/84 91 Nasal Cannula 3.0 03/22/17 15:15 Nasal Cannula 3.0 03/22/17 11:49 37.6 82 22 124/66 94 Nasal Cannula 2.0 Lab Results: Results Past 24 Hours Test 03/23/17 05:10 Range/Units White Blood Count 10.72 4.8-10.8 K/uL Red Blood Count 4.74 4.7-6.1 M/uL Hemoglobin 14.6 14.0-18.0 g/dL Hematocrit 43.7 42-52 % Mean Corpuscular Volume 92.2 80-100 fL Mean Corpuscular Hemoglobin 30.8 25-34 pg Mean Corpuscular Hemoglobin Concent 33.4 32-36 g/dl Platelet Count 197 130-400 K/uL Mean Platelet Volume 9.7 7.4-10.4 fL Neutrophils (%) (Auto) 85.7 % Lymphocytes (%) (Auto) 3.2 % Monocytes (%) (Auto) 10.0 % Eosinophils (%) (Auto) 0.5 % Basophils (%) (Auto) 0.2 % Neutrophils # (Auto) 9.20 1.4-6.5 K/uL Lymphocytes # (Auto) 0.34 1.2-3.4 K/uL Monocytes # (Auto) 1.07 0.11-0.59 K/uL Eosinophils # (Auto) 0.05 0-0.5 K/uL Basophils # (Auto) 0.02 0-0.2 K/uL RDW Standard Deviation 44.8 36.4-46.3 fL RDW Coefficient of Variation 13.2 11.5-14.5 % Immature Granulocyte % (Auto) 0.4 % Immature Granulocyte # (Auto) 0.04 0.00-0.02 K/uL Activated Partial Thromboplast Time 35.5 21.0-31.0 SECONDS Partial Thromboplastin Ratio 1.4 Arterial Blood pH 7.40 7.35-7.45 Arterial Blood Partial Pressure CO2 47 35-46 mmHg Arterial Blood Partial Pressure O2 119 80-95 mm/Hg Arterial Blood HCO3 28 19-24 mmol/L Arterial Blood Oxygen Saturation 98.4 90-95 % Arterial Blood Base Excess 2.8 -9-1.8 mEq/L Arterial Blood Gas Delivery 80% BIPAP Francois Test POS POS Sodium Level 139 136-145 mmol/L Potassium Level 4.6 3.5-5.1 mmol/L Chloride Level 103 98-107 mmol/L Carbon Dioxide Level 32 21-32 mmol/L Anion Gap 4.0 3-11 mmol/L Blood Urea Nitrogen 13 7-18 mg/dl Creatinine 0.95 0.60-1.40 mg/dl Est Creatinine Clear Calc Drug Dose 50.6 ml/min Estimated GFR () 83.7 Estimated GFR (Non- 72.2 BUN/Creatinine Ratio 13.2 10-20 Random Glucose 156 70-99 mg/dl Calcium Level 8.5 8.5-10.1 mg/dl Magnesium Level 2.1 1.8-2.4 mg/dl
[2017-03-23] MEDS ORDERED: PERFLUTREN LIPID MICROSPHERE (DEFINITY) IV ONE (12:12)
--- NOTE | 2017-03-23 12:30 | ECHOCARDIOGRAM REPORT ---
*NOTICE TO RECEIVING CONSTITUTION PARTY AGENCY This information is strictly Confidential and protected under [place] law. [place] law prohibits you from making any further disclosure of this information unless further disclosure is expressly permitted by the written consent of the person to whom it pertains or is authorized by law. A general authorization for the release of medical or other information is not sufficient for this purpose. Hospital accepts no responsibility if the information is made available to any other person, INCLUDING THE PATIENT. Interpretation Summary * Name: CHAY RICHMOND Study Date: 03/23/2017 10:50 AM BP: 109/71 mmHg * Patient Location: .[facility]\S\W361\S\1 HR: 100 * : 1930 (M/d/yyyy) Gender: Male Height: 63 in * Age: 87 yrs Ethnicity: [place] Weight: 164 lb * Ordering Physician: Alena Ferro. * Referring Physician: Self, Referred * Performed By: Jen Schaefer RDCS * * Reason For Study: FLUID OVERLOAD, RESPIRATORY DISTRESS * BSA: 1.8 m2 * -- Conclusions -- * The left ventricular cavity is small. * There is moderate concentric left ventricular hypertrophy. * No regional wall motion abnormalities noted. * Ejection Fraction = 65-70%. * Grade I diastolic dysfunction, (abnormal relaxation pattern). * Aortic valve sclerosis moderate, without significant aortic valvular stenosis. * The study was technically difficult. * A contrast injection of Definity was performed to improve assessment of LV function. Procedure Details * A contrast injection of Definity was performed to improve assessment of LV function. * Contrast was injected into an intravenous site in the left arm. * One vial of Definity ultrasound contrast was diluted in normal saline to a total volume of 10 ml. A total of '2' ml of solution was administered during imaging. * Lot # [id number] of Definity utilized for procedure. * Expiration date APR 22. * The attending nurse who injected the contrast agent was BECKY DRAKE RN. * The study was technically difficult. Left Ventricle * The left ventricular cavity is small. * There is moderate concentric left ventricular hypertrophy. * Focal thickening of the basal septum with no evidence of left ventricular outflow obstruction. * Ejection Fraction = 65-70%. * No regional wall motion abnormalities noted. Right Ventricle * The right ventricle is normal in size and function. Atria * Borderline left atrial enlargement. * Right atrial size is normal. Mitral Valve * The mitral valve is grossly normal. * There is no mitral valve stenosis. * Significant mitral regurgitation is absent. Tricuspid Valve * The tricuspid valve is not well visualized, but is grossly normal. * There is trace tricuspid regurgitation. * Right ventricular systolic pressure is elevated at 30-40mmHg. Aortic Valve * The aortic valve is trileaflet. * Aortic valve sclerosis moderate, without significant aortic valvular stenosis. Pulmonic Valve * The pulmonic valve is not well visualized. Great Vessels * The aortic root is normal size. Pericardium/Pleural * There is no pericardial effusion. Left Ventricular Diastolic Function * Grade I diastolic dysfunction, (abnormal relaxation pattern). MMode 2D Measurements and Calculations IVSd 1.6 cm IVSs 2.0 cm LVIDd 2.7 cm LVIDs 1.9 cm LVPWd 1.2 cm LVPWs 1.8 cm IVS/LVPW 1.3 FS 31.0 % EDV(Teich) 26.7 ml ESV(Teich) 10.5 ml EF(Teich) 60.7 % EDV(cubed) 19.4 ml ESV(cubed) 6.4 ml EF(cubed) 67.1 % % IVS thick 24.4 % % LVPW thick 46.8 % LV mass(C)d 124.8 grams LV mass(C)dI 70.2 grams/m\S\2 LV mass(C)s 146.1 grams LV mass(C)sI 82.2 grams/m\S\2 SV(Teich) 16.2 ml SI(Teich) 9.1 ml/m\S\2 SV(cubed) 13.0 ml SI(cubed) 7.3 ml/m\S\2 Ao root diam 3.9 cm Ao root area 11.7 cm\S\2 LVAd ap4 24.9 cm\S\2 LVLd ap4 8.8 cm EDV(MOD-sp4) 57.2 ml EDV(sp4-el) 59.9 ml LVAs ap4 13.9 cm\S\2 LVLs ap4 7.2 cm ESV(MOD-sp4) 21.0 ml ESV(sp4-el) 22.7 ml EF(MOD-sp4) 63.2 % EF(sp4-el) 62.2 % LVAd ap2 24.2 cm\S\2 LVLd ap2 8.2 cm EDV(MOD-sp2) 57.3 ml EDV(sp2-el) 60.4 ml LVAs ap2 11.5 cm\S\2 LVLs ap2 5.9 cm ESV(MOD-sp2) 18.6 ml ESV(sp2-el) 18.7 ml EF(MOD-sp2) 67.6 % EF(sp2-el) 69.0 % LVLd %diff -6.78 % EDV(MOD-bp) 59.2 ml LVLs %diff -21.69 % ESV(MOD-bp) 21.7 ml EF(MOD-bp) 63.4 % SV(MOD-sp4) 36.2 ml SI(MOD-sp4) 20.4 ml/m\S\2 SV(MOD-sp2) 38.7 ml SI(MOD-sp2) 21.8 ml/m\S\2 SV(MOD-bp) 37.5 ml SI(MOD-bp) 21.1 ml/m\S\2 SV(sp4-el) 37.3 ml SI(sp4-el) 21.0 ml/m\S\2 SV(sp2-el) 41.7 ml SI(sp2-el) 23.4 ml/m\S\2 Doppler Measurements and Calculations MV E max yefri 63.1 cm/sec MV A max yefri 96.0 cm/sec MV E/A 0.66 MV dec time 0.19 sec Ao V2 max 119.5 cm/sec Ao max PG 5.7 mmHg Ao max PG (full) 1.1 mmHg LV V1 max PG 4.6 mmHg LV V1 max 107.7 cm/sec TR max yefri 294.6 cm/sec
[2017-03-23] MEDS: [UNRECOGNIZED DRUG - REMARK] SCH (16:01)
[2017-03-24] MEDS: [UNRECOGNIZED DRUG - REMARK] SCH ×3 (00:25→15:43)
[2017-03-24] MEDS: LEVOTHYROXINE 100 MCG TAB PO SCH (05:54)
[2017-03-24] MEDS: HEPARIN SOD 5000 UNIT/0.5 ML CARP SQ SCH ×2 (05:56→19:28)
[2017-03-24 07:51] LABS: HEMATOCRIT 44.7 % (42-52); MEAN CELL VOLUME 93.1 fL (80-100); MEAN CORPUSCULAR HEMOGLOBIN 31.3 pg (25-34); MEAN CORPUSCULAR HGB CONC 33.6 g/dl (32-36); MEAN PLATELET VOLUME 9.8 fL (7.4-10.4); PLATELET COUNT 211 K/uL (130-400)
[2017-03-24 07:52] VITALS: BP 110/67; PULSE 89; TEMP 36.4; O2SAT 90
[2017-03-24 08:19] LABS: BUN/CREATININE RATIO 17.6 (10-20); CALCIUM 8.7 mg/dl (8.5-10.1); CREATININE 0.96 mg/dl (0.60-1.40); POTASSIUM 4.5 mmol/L (3.5-5.1)
--- NOTE | 2017-03-24 08:39 | Surgery Progress Note ---
Surgery Progress Note Date of Service March 24, 2017. Subjective Post OP Day: 4 + ambulating (OK), + bowel movement, + diet (regular), + feeling well (pain improved), + flatus, No complaints, No nausea, No vomiting Objective Vital Signs: Date Time Temp Pulse Resp B/P Pulse Ox O2 Delivery O2 Flow Rate FiO2 03/24/17 07:52 36.4 89 15 110/67 90 Room Air 03/24/17 00:10 Nasal Cannula 2.0 Humidified Oxygen 03/23/17 23:01 36.5 88 16 118/83 96 Nasal Cannula 2.0 Humidified Oxygen 03/23/17 19:38 86 18 97 Nasal Cannula 4.0 03/23/17 15:15 36.8 83 18 113/73 95 Humidified Oxygen 4.0 03/23/17 15:00 90 95 03/23/17 15:00 Nasal Cannula 4.0 03/23/17 14:39 92 24 97 Nasal Cannula 6.0 Physical Exam: SULLY drainage (serosanguinous; out in AM) General Appearance: WD/WN, no apparent distress Head: normocephalic, atraumatic Neck: supple, trachea midline Respiratory/Chest: lungs clear Cardiovascular: regular rate, rhythm Abdomen: normal bowel sounds, non distended, soft, + tenderness (mild) Incision(s): clean, dry, intact Extremities: non-tender, no pedal edema Laboratory Results: Results Past 24 Hours Test 03/24/17 07:37 Range/Units White Blood Count 7.90 4.8-10.8 K/uL Red Blood Count 4.80 4.7-6.1 M/uL Hemoglobin 15.0 14.0-18.0 g/dL Hematocrit 44.7 42-52 % Mean Corpuscular Volume 93.1 80-100 fL Mean Corpuscular Hemoglobin 31.3 25-34 pg Mean Corpuscular Hemoglobin Concent 33.6 32-36 g/dl RDW Standard Deviation 46.2 36.4-46.3 fL RDW Coefficient of Variation 13.4 11.5-14.5 % Platelet Count 211 130-400 K/uL Mean Platelet Volume 9.8 7.4-10.4 fL Sodium Level 142 136-145 mmol/L Potassium Level 4.5 3.5-5.1 mmol/L Chloride Level 103 98-107 mmol/L Carbon Dioxide Level 36 21-32 mmol/L Anion Gap 3.0 3-11 mmol/L Blood Urea Nitrogen 17 7-18 mg/dl Creatinine 0.96 0.60-1.40 mg/dl Est Creatinine Clear Calc Drug Dose 50.0 ml/min Estimated GFR () 82.6 Estimated GFR (Non- 71.3 BUN/Creatinine Ratio 17.6 10-20 Random Glucose 98 70-99 mg/dl Calcium Level 8.7 8.5-10.1 mg/dl Assessment & Plan s/p lap bon w/gangrenous cholecystitis -switch to oral abx soon -drain out in AM -regular diet -home tomorrow if medically ready per primary team
[2017-03-24] MEDS: RIVASTIGMINE REMOVE SCH (08:59)
[2017-03-24] MEDS: AMOXICILLIN/CLAVULANATE TAB 500 MG TAB PO SCH ×3 (08:59→19:24)
[2017-03-24] MEDS: TIOTROPIUM BROMIDE 5 PUFF/90 MCG INH INH SCH (08:59)
[2017-03-24] MEDS: RIVASTIGMINE TARTRATE 9.5 MG PATCH TD SCH (08:59)
[2017-03-24] MEDS: DOCUSATE SODIUM/SENNA 50/8.6MG TAB PO SCH ×2 (09:00→20:23)
[2017-03-24 09:06] VITALS: O2SAT 93
[2017-03-24 10:02] VITALS: O2SAT 93
[2017-03-24 11:39] VITALS: BP 124/72; PULSE 87; TEMP 36.7; O2SAT 91
[2017-03-24 15:14] VITALS: BP 112/71; PULSE 87; TEMP 36.8; O2SAT 92
--- NOTE | 2017-03-24 15:25 | Progress Note ---
Internal Med Progress Note Date of Service: March 24, 2017. Provider Documentation: SUBJECTIVE: Patient is doing very well today. AAOX2, sitting in chair. Tolerating PO well. Patient's pain is controlled. Denies any chest pain, fever, chills, vomiting. Off oxygen Barnes catheter was removed-urinating well OBJECTIVE: Vital Signs-as noted below Exam: General - Awake, alert, disoriented x 2 Lungs-AEBE decreased bilaterally, no crackles Heart-S1, S2 normal, no murmurs Abdomen-S/P Laparoscopic cholecystectomy- dressing + Drain + Extremities-Edema Bilaterally Lab data as noted below. ASSESSMENT & PLAN: ASSESSMENT AND PLAN: This 87-year-old male presents with right upper quadrant abdominal pain. CAT scan shows acute cholecystitis. CHF, DIASTOLIC DYSFUNCTION EXACERBATION: Patient was on lasix 40 mg at home. Was held on admission for cholecystitis. Post operatively was given IV Fluids x 24 hours. Was discontinued 5/18 AM, went into respiratory distress overnight. CXR- fluid overload. ABGs- Hypoxia with no CO2 retention. No prior hx of CHF noted. On Lasix at home because of chronic LE edema ?? -Placed on BIPAP overnight--->6 L--> Off oxygen today 92% on RA -S/P IV Lasix 40 mg x 2 days--> Change to Lasix 40 mg daily (home dose) -Echo- Moderate LVH, EF 65%, No wall motion abnormalities, Aortic sclerosis, diastolic dysfunction I ACUTE CHOLECYSTITIS: Per surgical report - gangrenous cholecystitis S/P Laparoscopic Cholecystectomy with Intraoperative cholangiogram (no filling defect in CBD noted) on 03/20 -Tolerating regular diet well -IV Ciprofloxacin/Metronidazole (Day 4)--> Changed to PO Augmentin on 03/23/17 ( Day 5 of antibiotics) -Work up - MRCP- 1. Bibasilar atelectasis.2. Mild edematous change about the gallbladder suggesting acute cholecystitis.3. Normal appearance to the common bile duct and pancreatic duct.4. Previous described cystic duct stone is not easily identified on this exam most likely secondary to technical lack of resolution. CT abd/pelvis- Cholelithiasis with stone in cystic duct, Diverticulosis. -Surgery on board, appreciate inputs. DELIRIUM : Resolved Patient was delirious post operatively. Resolved within 24 hours. Required one dose of Haldol only on 03/21. Improved on 03/22 but again was more disoriented next day due to respiratory distress, Today much better- AAOX2. -Likely secondary to post operative status, advanced age, Respiratory failure/ Hypoxia -Monitor COPD : -No signs of exacerbation -Continue with spiriva, Inhalers change to QID from PRN due to resp distress. No indication of steroids as not in exacerbation. CHRONIC LOWER EXTREMITY EDEMA -On lasix daily at home -Mx as above HX OF CRISTIANE S/P Surgery, not on CPAP DVT PROPHYLAXIS -SCDS; Heparin SQ DISPOSITION PT/OT recommends Home with PT/OT. Family refused rehab Probable discharge in AM Discussed with by bedside. Vital Signs: Date Time Temp Pulse Resp B/P Pulse Ox O2 Delivery O2 Flow Rate FiO2 03/24/17 15:14 36.8 87 15 112/71 92 Room Air 03/24/17 11:39 36.7 87 15 124/72 91 Room Air 03/24/17 10:02 93 Room Air 03/24/17 09:06 93 Room Air 03/24/17 07:52 36.4 89 15 110/67 90 Room Air 03/24/17 07:30 Room Air 03/24/17 00:10 Nasal Cannula 2.0 Humidified Oxygen 03/23/17 23:01 36.5 88 16 118/83 96 Nasal Cannula 2.0 Humidified Oxygen 03/23/17 19:38 86 18 97 Nasal Cannula 4.0 Lab Results: Results Past 24 Hours Test 03/24/17 07:37 Range/Units White Blood Count 7.90 4.8-10.8 K/uL Red Blood Count 4.80 4.7-6.1 M/uL Hemoglobin 15.0 14.0-18.0 g/dL Hematocrit 44.7 42-52 % Mean Corpuscular Volume 93.1 80-100 fL Mean Corpuscular Hemoglobin 31.3 25-34 pg Mean Corpuscular Hemoglobin Concent 33.6 32-36 g/dl RDW Standard Deviation 46.2 36.4-46.3 fL RDW Coefficient of Variation 13.4 11.5-14.5 % Platelet Count 211 130-400 K/uL Mean Platelet Volume 9.8 7.4-10.4 fL Sodium Level 142 136-145 mmol/L Potassium Level 4.5 3.5-5.1 mmol/L Chloride Level 103 98-107 mmol/L Carbon Dioxide Level 36 21-32 mmol/L Anion Gap 3.0 3-11 mmol/L Blood Urea Nitrogen 17 7-18 mg/dl Creatinine 0.96 0.60-1.40 mg/dl Est Creatinine Clear Calc Drug Dose 50.0 ml/min Estimated GFR () 82.6 Estimated GFR (Non- 71.3 BUN/Creatinine Ratio 17.6 10-20 Random Glucose 98 70-99 mg/dl Calcium Level 8.7 8.5-10.1 mg/dl
[2017-03-24] MEDS: ACETAMINOPHEN 325 MG TAB PO PRN (15:43)
[2017-03-24 23:02] VITALS: BP 138/75; PULSE 84; TEMP 36.6; O2SAT 93
[2017-03-25 00:20] VITALS: O2SAT 91
[2017-03-25] MEDS: [UNRECOGNIZED DRUG - REMARK] SCH ×2 (00:23→08:00)
[2017-03-25] MEDS: LEVOTHYROXINE 100 MCG TAB PO SCH (05:52)
[2017-03-25] MEDS: HEPARIN SOD 5000 UNIT/0.5 ML CARP SQ SCH (05:53)
[2017-03-25 06:48] VITALS: BP 136/76; PULSE 90; TEMP 36.9; O2SAT 91
[2017-03-25] MEDS: AMOXICILLIN/CLAVULANATE TAB 500 MG TAB PO SCH ×2 (08:44→12:42)
[2017-03-25] MEDS: RIVASTIGMINE REMOVE SCH (08:44)
[2017-03-25] MEDS: RIVASTIGMINE TARTRATE 9.5 MG PATCH TD SCH (08:47)
[2017-03-25] MEDS: DOCUSATE SODIUM/SENNA 50/8.6MG TAB PO SCH (08:47)
[2017-03-25] MEDS ORDERED: FUROSEMIDE 40 MG TAB PO SCH (09:00)
[2017-03-25] MEDS: TIOTROPIUM BROMIDE 5 PUFF/90 MCG INH INH SCH (09:36)
--- NOTE | 2017-03-25 11:57 | Surgery Progress Note ---
Surgery Progress Note Date of Service March 25, 2017. Subjective Post OP Day: 5 + diet (regular), + feeling well, + flatus, No complaints, No nausea, No vomiting Objective Vital Signs: Date Time Temp Pulse Resp B/P Pulse Ox O2 Delivery O2 Flow Rate FiO2 03/25/17 07:30 Room Air 03/25/17 06:48 36.9 90 15 136/76 91 Room Air 03/25/17 00:20 91 Room Air 03/24/17 23:02 36.6 84 17 138/75 93 Room Air 03/24/17 15:45 Room Air 03/24/17 15:14 36.8 87 15 112/71 92 Room Air General Appearance: WD/WN, no apparent distress Head: normocephalic, atraumatic Abdomen: normal bowel sounds, non tender, non distended, soft Extremities: non-tender, no pedal edema Assessment & Plan s/p lap bon w/gangrenous cholecystitis -drain out -regular diet -home -F/U w/Dr Wilkinson 1-2 weeks
--- NOTE | 2017-03-25 12:54 | Progress Note ---
Internal Med Progress Note Date of Service: March 25, 2017. Provider Documentation: SUBJECTIVE: Patient is doing very well today. AAOX2. Tolerating PO well. No c/o pain. Denies any chest pain, fever, chills, vomiting. Off oxygen Ambulated Eager to be discharged OBJECTIVE: Vital Signs-as noted below Exam: General - Awake, alert, disoriented x 2 Lungs-AEBE decreased bilaterally, no crackles Heart-S1, S2 normal, no murmurs Abdomen-S/P Laparoscopic cholecystectomy- dressing + Drain + Extremities-Edema Bilaterally Lab data as noted below. ASSESSMENT & PLAN: ASSESSMENT AND PLAN: This 87-year-old male presents with right upper quadrant abdominal pain. CAT scan shows acute cholecystitis. ACUTE CHOLECYSTITIS: Per surgical report - gangrenous cholecystitis S/P Laparoscopic Cholecystectomy with Intraoperative cholangiogram (no filling defect in CBD noted) on 03/20. Drain removed today 03/25/17 -Tolerating regular diet well -S/P IV Ciprofloxacin/Metronidazole (Day 4)--> Changed to PO Augmentin on (Day 6/10 of antibiotics) -Work up - MRCP- 1. Bibasilar atelectasis.2. Mild edematous change about the gallbladder suggesting acute cholecystitis.3. Normal appearance to the common bile duct and pancreatic duct.4. Previous described cystic duct stone is not easily identified on this exam most likely secondary to technical lack of resolution. CT abd/pelvis- Cholelithiasis with stone in cystic duct, Diverticulosis. -Surgery on board, appreciate inputs. Cleared for discharge to home S/P CHF, DIASTOLIC DYSFUNCTION EXACERBATION: Patient was on lasix 40 mg at home. Was held on admission for cholecystitis. Post operatively was given IV Fluids x 24 hours. Was discontinued 5/18 AM, went into respiratory distress overnight. CXR- fluid overload. ABGs- Hypoxia with no CO2 retention. No prior hx of CHF noted. On Lasix at home because of chronic LE edema ?? -Placed on BIPAP overnight--->6 L--> Off oxygen today 92% on RA, 2 step- no need for oxygen -S/P IV Lasix 40 mg x 2 days--> Changed to Lasix 40 mg daily (home dose) -Echo- Moderate LVH, EF 65%, No wall motion abnormalities, Aortic sclerosis, diastolic dysfunction I DELIRIUM : Resolved Patient was delirious post operatively. Resolved within 24 hours. Required one dose of Haldol only on 03/21. Improved on 03/22 but again was more disoriented next day due to respiratory distress, - AAOX2 since yesterday -Likely secondary to post operative status, advanced age, Respiratory failure/ Hypoxia COPD : -No signs of exacerbation -Continue with spiriva, Inhalers change to QID from PRN due to resp distress. No indication of steroids as not in exacerbation. CHRONIC LOWER EXTREMITY EDEMA -On lasix daily at home -Mx as above HX OF CRISTIANE S/P Surgery, not on CPAP DVT PROPHYLAXIS -SCDS; Heparin SQ DISPOSITION PT/OT recommends Home with PT/OT. Family refused rehab Agreeable to Home with [facility] Eager to be discharged Cleared by surgery for discharge Discussed with by bedside about discharge plan Vital Signs: Date Time Temp Pulse Resp B/P Pulse Ox O2 Delivery O2 Flow Rate FiO2 03/25/17 07:30 Room Air 03/25/17 06:48 36.9 90 15 136/76 91 Room Air 03/25/17 00:20 91 Room Air 03/24/17 23:02 36.6 84 17 138/75 93 Room Air 03/24/17 15:45 Room Air 03/24/17 15:14 36.8 87 15 112/71 92 Room Air
[2017-03-25] MEDS ORDERED: AMOX1TAB42 PO (12:55)
--- NOTE | 2017-03-25 12:57 | Discharge Summary ---
Discharge Summary Date of Service March 25, 2017. Discharge Summary Admission Date: March 19, 2017 at 21:54 Discharge Date: March 25, 2017 Discharge Disposition: Home with services (PT/OT recommended) Principal Diagnosis: 1. Acute gangrenous cholecystitis 2. S/P Laparoscopic cholecystectomy 3. Volume overload during post operative phase 4. Post operative hypoxia 5. Post operative delirium Secondary Diagnoses/Problems: 1. Hx of COPD 2. Hx of CRISTIANE 3. Physical deconditioning Procedures: Laparoscopic cholecystectomy with intra operative cholangiogram (neg for filling defects) on 03/25/17. Drain removed on 03/25/17 CT scan abd/pelvis US gall bladder IV fluids IV antibiotics IV lasix BIPAP temporarily PT/OT. Consultations: Surgery,Dr Wilkinson Pending Studies/Follow-Up: Instructions / Follow-Up MEDICATION CHANGES: 1. Augmentin twice a day x 4 more days to complete course of 10 days of antibiotics FOLLOW UP 1. Follow up with PCP in 1 week. 2. Follow up with surgeon in 1-2 weeks, Dr Wilkinson MAY PT/OT recommended Medication Reconciliation New Medications: Amoxicillin & Pot Clavulanate (Amoxicillin/Clavulanate P) 1 Tab Tab 500 MG PO TIDM for 4 Days, #8 TAB Continued Medications: Aspirin (Aspirin Ec) 81 Mg Tab 81 MG PO DAILY Furosemide (Lasix) 40 Mg Tab 40 MG PO DAILY, TAB Levothyroxine Sodium (Levothyroxine Sodium) 100 Mcg Tab 100 MG PO DAILY, TAB Rivastigmine Tartrate (Exelon) 9.5 Mg Tdsy 1 PATCH TOP DAILY, PATCH [Spiriva 18MCG] () 1 PUFF INH DAILY Admission Information HPI (per Admitting provider): HISTORY OF PRESENT ILLNESS: This is an 87-year-old male with past medical history significant for sleep apnea status post surgery, history of hypothyroidism, lower extremity edema, hypertension, not on any medications, history of prostate cancer and prostatitis and Lyme disease, presents with right upper quadrant abdominal pain. The patient also has some early dementia. The patient lives with his , is ambulatory and can climb steps and is alert and oriented most of the times, but sometimes gets confused because of his dementia. Patient complained of right upper quadrant abdominal pain today, radiating to his back, moderate in severity and patient was also having some chills at that time and some nausea and decided to come to the ER. In the ER, a CAT scan showed cholecystitis. The patient's pain is controlled with pain medication. Resting comfortably, hemodynamically stable. Denies any chest pain, no shortness of breath, no cough, no headaches, no nausea, no vomiting at this time. Normal bowel and bladder movements. Appetite is okay. Hospital Course ASSESSMENT AND PLAN: This 87-year-old male presented with right upper quadrant abdominal pain. CAT scan shows acute cholecystitis. ACUTE CHOLECYSTITIS: Per surgical report - gangrenous cholecystitis S/P Laparoscopic Cholecystectomy with Intraoperative cholangiogram (no filling defect in CBD noted) on 03/20. Drain removed today 03/25/17 -Tolerating regular diet well, Had a BM -S/P IV Ciprofloxacin/Metronidazole (Day 4)--> Changed to PO Augmentin on (Day 6/10 of antibiotics) -Work up - MRCP- 1. Bibasilar atelectasis.2. Mild edematous change about the gallbladder suggesting acute cholecystitis.3. Normal appearance to the common bile duct and pancreatic duct.4. Previous described cystic duct stone is not easily identified on this exam most likely secondary to technical lack of resolution. CT abd/pelvis- Cholelithiasis with stone in cystic duct, Diverticulosis. -Surgery on board, appreciate inputs. Cleared for discharge to home S/P POST OPERATIVE HYPOXIA/VOLUME OVERLOAD: Patient was on lasix 40 mg at home. Was held on admission for cholecystitis. Post operatively was given IV Fluids x 24 hours. Was discontinued 03/22 AM, went into respiratory distress overnight. CXR- fluid overload. ABGs- Hypoxia with no CO2 retention. No prior hx of CHF noted. On Lasix at home because of chronic LE edema ?? -Placed on BIPAP overnight--->6 L--> Off oxygen today 92% on RA, 2 step- no need for oxygen -S/P IV Lasix 40 mg x 2 days--> Changed to Lasix 40 mg daily (home dose) -Echo- Moderate LVH, EF 65%, No wall motion abnormalities, Aortic sclerosis, diastolic dysfunction I DELIRIUM : Resolved Patient was delirious post operatively. Resolved within 24 hours. Required one dose of Haldol only on 03/21. Improved on 03/22 but again was more disoriented next day due to respiratory distress, - AAOX2 since yesterday -Likely secondary to post operative status, advanced age, Respiratory failure/ Hypoxia COPD : -No signs of exacerbation -Continue with spiriva, Inhalers change to QID from PRN due to resp distress. No indication of steroids as not in exacerbation. CHRONIC LOWER EXTREMITY EDEMA -On lasix daily at home -Mx as above HX OF CRISTIANE S/P Surgery, not on CPAP DVT PROPHYLAXIS -SCDS; Heparin SQ DISPOSITION PT/OT recommends Home with PT/OT. Family refused rehab Agreeable to Home with HHS Eager to be discharged Cleared by surgery for discharge Discussed with by bedside about discharge plan Total time spent on discharge = 38 minutes This includes examination of the patient, discharge planning, medication reconciliation, and communication with other providers. Discharge Instructions Discharge Goals Goal(s): Decrease discomfort, Improve function Activity Recommendations Activity Limitations: per Instructions/Follow-up section (per surgeon's instructions) . Instructions / Follow-Up Instructions / Follow-Up MEDICATION CHANGES: 1. Augmentin twice a day x 4 more days to complete course of 10 days of antibiotics FOLLOW UP 1. Follow up with PCP in 1 week. 2. Follow up with surgeon in 1-2 weeks, Dr Wilkinson MAY PT/OT recommended Current Hospital Diet Patient's current hospital diet: Regular Diet Discharge Diet Recommended Diet: Low Sodium Diet (2gm Na) (as tolerated) Procedures Procedures Performed: Laparoscopic Cholecystectomy, with Intraoperative Cholangiogram Pending Studies Studies pending at discharge: no Laboratory Results Hemoglobin A1c Test 03/20/17 06:45 Range/Units Estimated Average Glucose 108 mg/dl Hemoglobin A1c 5.4 4.5-5.6 % Medical Emergencies . Who to Call and When: Medical Emergencies: If at any time you feel your situation is an emergency, please call 911 immediately. . Non-Emergent Contact Non-Emergency issues call your: Primary Care Provider, Surgeon . . "Provider Documentation" section prepared by Alena Ferro. . VTE Core Measure Inpt VTE Proph given/why not?: Unfractionated heparin SQ, SCD's
[2017-03-25 14:41] VITALS: BP 136/76; PULSE 90; TEMP 36.9; O2SAT 91
== END 2017-03-25 15:05 | disposition home health service (06) | DRG 417 ==
LOC: ENRESERVDT → ENRESERVTM → C.EDB 19:35 → C.MSW 21:54
PROVIDERS: ADMIT Internal Medicine; ATTEND Internal Medicine
PROC: 0FT44ZZ Resection of Gallbladder, Percutaneous Endoscopic Approach (ICD-10-PCS; principal; 2017-03-20 11:30)
DX: K81.0 Acute cholecystitis (principal); I50.31 Acute diastolic (congestive) heart failure; J44.9 Chronic obstructive pulmonary disease, unspecified; R09.02 Hypoxemia; R41.0 Disorientation, unspecified; Z79.82 Long term (current) use of aspirin; Z79.899 Other long term (current) drug therapy

== ENCOUNTER 2018-03-20 19:12 | Emergency (ER) | payer OTHER, BC ==
[~2018-03-20 19:12] MED LIST changes: +AMOX1TAB42 PO; -ASPEC81 PO; +ASPI81TA28 PO; +EXLP95 TOP; +FRS/40 PO; -LEVO-17 PO; -LEVO100T48 PO; +LEVO100T7 PO; -LEVO25TA34 PO; +SPIRIVA 18MCG INH
[2018-03-20 19:14] VITALS: TEMP 37; Ht 152.4 cm
[2018-03-20] MEDS ORDERED: SODIUM CHLORIDE 0.9% 1000ML 1,000 ML IV STA (19:36)
--- NOTE | 2018-03-20 19:37 | EMERGENCY ROOM VISIT NOTE ---
History Report prepared by Ingrid: Yane Mike Under the Supervision of: Dr. Giorgio Gee M.D. First contact with patient: 19:20 Chief Complaint: FEVER Stated Complaint: FEVER, DECREASED URINE, DECREASED APPETITE History of Present Illness The patient is an 88 year old white male with a past medical history of dementia and COPD who presents to the ED with a cc of a fever beginning 2 days uniform [employer]. Positive lack of urination, poor ambulation, weak voice, swelling of legs- - this is chronic. Negative cough, chest pain, vomiting, and rashes. He is accompanied by his daughter who reports that he had a fever of 101 and seems more confused than usual lately. She also notes that his ambulation has been extremely poor, he appears more demented than usual, and he has a lack of urination. His daughter states the patient wears oxygen at night. HPI and ROS limited due to the patient's dementia. 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 Review of Systems See HPI for pertinent positives and negatives. HPI and ROS limited due to the patient's dementia. Additional information was obtained from the patient's daughter. A total of ten systems were reviewed and were otherwise negative. Past Medical & Surgical Medical Problems: (1) Cholecystitis (2) COPD (chronic obstructive pulmonary disease) (3) Dementia COPD (chronic obstructive pulmonary disease) Dementia Family History No pertinent family history Social History Smoking Status: Former Smoker Smokeless Tobacco Use: No Marital Status: Housing Status: lives with significant other Occupation Status: retired Current/Historical Medications Scheduled Levothyroxine Sodium (Levothyroxine Sodium), 100 MG PO DAILY [Spiriva 18MCG], 1 PUFF INH DAILY Allergies Coded Allergies: No Known Allergies (Unverified , 03/20/18) Physical Exam Vital Signs Date Time Temp Pulse Resp B/P (MAP) Pulse Ox O2 Delivery O2 Flow Rate FiO2 03/20/18 22:00 84 22 139/72 91 03/20/18 21:31 139/72 03/20/18 21:10 84 23 93 Room Air 03/20/18 21:01 134/73 03/20/18 20:40 88 23 93 Room Air 03/20/18 20:38 88 22 135/82 93 Room Air 03/20/18 20:00 83 22 136/72 98 Nebulizer 03/20/18 19:38 90 Room Air 03/20/18 19:30 89 Room Air 03/20/18 19:30 95 Nasal Cannula 1.0 03/20/18 19:27 90 03/20/18 19:14 37.0 88 20 120/76 90 Room Air Physical Exam GENERAL: Awake, alert, well-appearing, NAD HENT: Normocephalic, atraumatic. EYES: Normal conjunctiva. Sclera non-icteric. PERRL. No anisocoria. NECK: Supple. No nuchal rigidity. FROM. RESPIRATORY: CTAB, no rhonchi. Crackles at the right chest with trace wheezing. CARDIAC: RRR, no MRG ABDOMEN: Soft, NTND, BS+ MSK: No chest wall TTP. LLE edema, no RLE edema NEURO: GCS 13 for confused words, open eyes and follows commands, CN 2-12 intact , moves all 4s on command SKIN: No rash or jaundice noted. Medical Decision & Procedures ER Provider Diagnostic Interpretation: Radiology results as stated below per my review and radiologist interpretation: HEAD CT NONCONTRAST CT DOSE: 712.55 mGy.cm HISTORY: dementia, decreased mental status, ?fall several days ago TECHNIQUE: Multiaxial CT images of the head were performed without the use of intravenous contrast. Automated exposure control was utilized for this study. A dose lowering technique was utilized adhering to the principles of ALARA. Comparison: None. Findings: Opacification of the left posterior ethmoid air cells. This is likely chronic. The mastoid air cells are clear. The calvarium and skull base are intact. There is no mass, hematoma, midline shift, acute infarct. White matter hypodensity is nonspecific but suggestive of microvascular ischemic change. The ventricles and sulci demonstrate mild age-related involutional changes. Impression: No acute intracranial abnormality. Atrophy and microvascular ischemic changes. Electronically signed by: Jamshid Valdez M.D. 03/20/2018 8:37 PM CHEST ONE VIEW PORTABLE HISTORY: Evaluate Fever/Sepsis COMPARISON: Chest 03/20/2018. FINDINGS: There are low lung volumes. No pneumothorax. The heart remains mildly enlarged. Mild pulmonary congestion has improved. Bibasilar linear densities are again noted. Cholecystectomy. IMPRESSION: 1. Low lung volumes with bibasilar linear densities suggesting subsegmental atelectasis. 2. Pulmonary vascular congestion has improved. Electronically signed by: Jamshid Valdez M.D. 03/20/2018 8:49 PM Dictated Date/Time: 03/20/2018 8:48 PM Laboratory Results 03/20/18 19:50 Red Blood Count 5.08, Mean Corpuscular Volume 90.6, Mean Corpuscular Hemoglobin 30.7, Mean Corpuscular Hemoglobin Concent 33.9, Mean Platelet Volume 9.9, Neutrophils (%) (Auto) 81.5, Lymphocytes (%) (Auto) 8.4, Monocytes (%) (Auto) 8.7, Eosinophils (%) (Auto) 1.1, Basophils (%) (Auto) 0.2, Neutrophils # (Auto) 6.80, Lymphocytes # (Auto) 0.70, Monocytes # (Auto) 0.73, Eosinophils # (Auto) 0.09, Basophils # (Auto) 0.02 03/20/18 19:50 Test 03/20/18 19:45 03/20/18 19:50 Urine Color DK YELLOW Urine Appearance CLEAR (CLEAR) Urine pH 6.0 (4.5-7.5) Urine Specific [place] 1.024 (1.000-1.030) Urine Protein TRACE (NEG) Urine Glucose (UA) NEG (NEG) Urine Ketones TRACE (NEG) Urine Occult Blood NEG (NEG) Urine Nitrite NEG (NEG) Urine Bilirubin NEG (NEG) Urine Urobilinogen NEG (NEG) Urine Leukocyte Esterase NEG (NEG) Urine WBC (Auto) 1-5 /hpf (0-5) Urine RBC (Auto) 0-4 /hpf (0-4) Urine Hyaline Casts (Auto) 0 /lpf (0-5) Urine Epithelial Cells (Auto) 0-5 /lpf (0-5) Urine Bacteria (Auto) NEG (NEG) White Blood Count 8.35 K/uL (4.8-10.8) Red Blood Count 5.08 M/uL (4.7-6.1) Hemoglobin 15.6 g/dL (14.0-18.0) Hematocrit 46.0 % (42-52) Mean Corpuscular Volume 90.6 fL (80-100) Mean Corpuscular Hemoglobin 30.7 pg (25-34) Mean Corpuscular Hemoglobin Concent 33.9 g/dl (32-36) Platelet Count 165 K/uL (130-400) Mean Platelet Volume 9.9 fL (7.4-10.4) Neutrophils (%) (Auto) 81.5 % Lymphocytes (%) (Auto) 8.4 % Monocytes (%) (Auto) 8.7 % Eosinophils (%) (Auto) 1.1 % Basophils (%) (Auto) 0.2 % Neutrophils # (Auto) 6.80 K/uL (1.4-6.5) Lymphocytes # (Auto) 0.70 K/uL (1.2-3.4) Monocytes # (Auto) 0.73 K/uL (0.11-0.59) Eosinophils # (Auto) 0.09 K/uL (0-0.5) Basophils # (Auto) 0.02 K/uL (0-0.2) RDW Standard Deviation 42.8 fL (36.4-46.3) RDW Coefficient of Variation 13.0 % (11.5-14.5) Immature Granulocyte % (Auto) 0.1 % Immature Granulocyte # (Auto) 0.01 K/uL (0.00-0.02) Prothrombin Time 11.0 SECONDS (9.0-12.0) Prothromb Time International Ratio 1.0 (0.9-1.1) Activated Partial Thromboplast Time 30.8 SECONDS (21.0-31.0) Partial Thromboplastin Ratio 1.2 Anion Gap 3.0 mmol/L (3-11) Estimated GFR () 79.0 Estimated GFR (Non- 68.2 BUN/Creatinine Ratio 14.5 (10-20) Calcium Level 9.3 mg/dl (8.5-10.1) Total Bilirubin 1.6 mg/dl (0.2-1) Direct Bilirubin 0.3 mg/dl (0-0.2) Aspartate Amino Transf (AST/SGOT) 15 U/L (15-37) Alanine Aminotransferase (ALT/SGPT) 17 U/L (12-78) Alkaline Phosphatase 97 U/L (45-117) Troponin I < 0.015 ng/ml (0-0.045) Total Protein 7.3 gm/dl (6.4-8.2) Albumin 3.4 gm/dl (3.4-5.0) Laboratory results reviewed by me Medications Administered Medications (Trade) Dose Ordered Sig/Bennett Route Start Time Stop Time Status Last Admin Dose Admin Sodium Chloride 1,000 ml @ 999 mls/hr Q1H1M STAT IV 03/20/18 19:36 03/20/18 20:36 DC 03/20/18 19:58 999 MLS/HR Albuterol/ Ipratropium (Duoneb) 3 ml ONE STAT INH 03/20/18 19:39 03/20/18 19:40 DC 03/20/18 20:00 3 ML ECG Per My Interpretation Indication: weakness, other (fever) Rate (beats per minute): 86 Rhythm: sinus rhythm Findings: 1st degree AV block, RBBB, T-wave inversion (Lead III), other (wide QRS) Comparison ECG Date: 03/23/17 Change: 1st degree block is new compared to prior ED Course 1926: The patient was evaluated in room C2. A complete history and physical exam was performed. 2209: I reevaluated the patient. Discussed results and discharge instructions: He and his daughter verbalized understanding and agreement. The patient is ready for discharge. Medical Decision The patient is an 88 year old white male with a past medical history of dementia and COPD who presents to the ED with a cc of a fever beginning 2 days uniform [employer]. Positive lack of urination, poor ambulation, weak voice, swelling of legs- - this is chronic. Negative cough, chest pain, vomiting, and rashes. Prior records/ancillary studies reviewed. Triage Nursing notes reviewed. Additional history obtained from the patient's daughter. The patient's history was concerning for fever. Differential diagnosis: Etiologies such as viral syndrome, otitis, pharyngitis, pneumonia, influenza, meningitis, urinary tract infection, sepsis, bacteremia, metabolic, infection, hypo/hyperglycemia, electrolyte abnormalities, cardiac sources, intracerebral event, toxicologic, neurologic, as well as others were entertained. Patient was seen and evaluated the bedside. Patient is with his primary caregiver the daughter. She has noted that he has had a fever decreased appetite as well as increased possible hallucinations as he has been picking at things. He was given antipyretic. Patient does have some left lower extremity swelling which is been chronic in nature. Has not endorsed any chest pain or vomiting. No history of COPD and does use oxygen at night. The patient was intermittently borderline hypoxic with an O2 sat of 89%. The patient did have a left lower extremity edema but had no other acute complaints. The history is limited given the patient's past medical history of dementia. Patient did have blood work completed along with an EKG, troponin, chest x-ray, CT brain. CT brain negative acute, EKG does show mild DC prolongation and QRS widening. He has had QRS widening in the past. The patient's electrolytes are normal. Patient does have mild elevations in bili is what this is chronic. Patient did have an episode of cholecystitis last year. The patient's troponin is negative. Nonischemic EKG. Less likely ACS. Chest x-ray is clear and shows improved pulmonary vascular congestion. Less likely CHF. The patient's urinalysis is also negative. Patient's white blood cell count is within normal limits. I did discuss findings with the daughter at bedside and stated this may be viral in nature but could be infectious and should be monitored. I did state with the daughter that she she she should have a low threshold to return if he has any worsening symptoms. The patient did state that he felt improved. Patient was given strict follow-up, discharge, and return precautions. All questions were answered. Patient was deemed suitable for outpatient follow-up at this time. Patient agreed with the plan of care and was safely discharged home. Medication Reconcilliation Current Medication List: was personally reviewed by me Blood Pressure Screening Patient's blood pressure: Normal blood pressure Blood pressure disposition: Did not require urgent referral Impression Primary Impression: Fever Additional Impression: Weakness Scribe Attestation The scribe's documentation has been prepared under my direction and personally reviewed by me in its entirety. I confirm that the note above accurately reflects all work, treatment, procedures, and medical decision making performed by me. Departure Information Dispostion Home / Self-Care Referrals Amber Koenig M.D. (PCP) Forms HOME CARE DOCUMENTATION FORM, IMPORTANT VISIT INFORMATION Patient Instructions ED Fever Control, ED Weakness [facility], My [facility] Additional Instructions Please return to the emergency department if you have worsening or recurrent symptoms not amenable to at-home treatment. Please call for a follow-up appointment with her primary care physician. Please take your medications as prescribed. If you have other concerns and/or complaints please feel free to also call your primary care physician's office or return the ED for further evaluation, management, and treatment. Take your medications as prescribed You have been examined and treated today on an emergency basis only. This is not a substitute for, or an effort to provide, complete comprehensive medical care. It is impossible to recognize and treat all injuries or illnesses in a single emergency department visit. It is therefore important that you follow up closely with [facility], your PCP, and/or your specialist(s). Call as soon as possible for an appointment. Thank you for your time and consideration. I look forward to speaking with you again soon. Please don't hesitate to call us if you have any questions. Problem Qualifiers Primary Impression: Fever Fever type: unspecified Qualified Codes: R50.9 - Fever, unspecified
[2018-03-20 19:38] VITALS: O2SAT 90
[2018-03-20] MEDS ORDERED: ALBUT/IPRATROP 3MG/0.5MG NEB 3 ML VIAL INH STA (19:39)
[2018-03-20 20:09] LABS: BASO % 0.2 %; BASO ABS # 0.02 K/uL (0-0.2); EOS % 1.1 %; EOS ABS # 0.09 K/uL (0-0.5); HEMOGLOBIN 15.6 g/dL (14.0-18.0); IG# 0.01 K/uL (0.00-0.02); LYMPH % 8.4 %; MEAN CELL VOLUME 90.6 fL (80-100); MEAN CORPUSCULAR HEMOGLOBIN 30.7 pg (25-34); MEAN CORPUSCULAR HGB CONC 33.9 g/dl (32-36); MEAN PLATELET VOLUME 9.9 fL (7.4-10.4); MONO % 8.7 %; MONO ABS # 0.73 K/uL (0.11-0.59); NEUT % 81.5 %; PLATELET COUNT 165 K/uL (130-400); RED CELL DISTRIBUTION WIDTH SD 42.8 fL (36.4-46.3); WHITE BLOOD COUNT 8.35 K/uL (4.8-10.8)
[2018-03-20 20:19] LABS: PTT PATIENT 30.8 SECONDS (21.0-31.0)
[2018-03-20 20:34] LABS: ALBUMIN 3.4 gm/dl (3.4-5.0); ALKALINE PHOSPHATASE 97 U/L (45-117); ALT/SGPT 17 U/L (12-78); AST/SGOT 15 U/L (15-37); BLOOD UREA NITROGEN 14 mg/dl (7-18); CALCIUM 9.3 mg/dl (8.5-10.1); CARBON DIOXIDE 34 mmol/L (21-32); CREATININE 0.99 mg/dl (0.60-1.40); GLUCOSE 102 mg/dl (70-99); POTASSIUM 4.2 mmol/L (3.5-5.1); SODIUM 139 mmol/L (136-145); TOTAL PROTEIN 7.3 gm/dl (6.4-8.2)
--- NOTE | 2018-03-20 20:39 | DIAGNOSTIC IMAGING REPORT ---
HEAD CT NONCONTRAST CT DOSE: 712.55 mGy.cm HISTORY: dementia, decreased mental status, ?fall several days ago TECHNIQUE: Multiaxial CT images of the head were performed without the use of intravenous contrast. Automated exposure control was utilized for this study. A dose lowering technique was utilized adhering to the principles of ALARA. Comparison: None. Findings: Opacification of the left posterior ethmoid air cells. This is likely chronic. The mastoid air cells are clear. The calvarium and skull base are intact. There is no mass, hematoma, midline shift, acute infarct. White matter hypodensity is nonspecific but suggestive of microvascular ischemic change. The ventricles and sulci demonstrate mild age-related involutional changes. Impression: No acute intracranial abnormality. Atrophy and microvascular ischemic changes. Electronically signed by: Jamshid Valdez M.D. 03/20/2018 8:37 PM Dictated Date/Time: 03/20/2018 8:30 PM
--- NOTE | 2018-03-20 20:50 | DIAGNOSTIC IMAGING REPORT ---
CHEST ONE VIEW PORTABLE HISTORY: Evaluate Fever/Sepsis COMPARISON: Chest 03/20/2018. FINDINGS: There are low lung volumes. No pneumothorax. The heart remains mildly enlarged. Mild pulmonary congestion has improved. Bibasilar linear densities are again noted. Cholecystectomy. IMPRESSION: 1. Low lung volumes with bibasilar linear densities suggesting subsegmental atelectasis. 2. Pulmonary vascular congestion has improved. Electronically signed by: Jamshid Valdez M.D. 03/20/2018 8:49 PM Dictated Date/Time: 03/20/2018 8:48 PM
[2018-03-20 22:00] VITALS: BP 139/72; PULSE 84; O2SAT 91
== END 2018-03-20 21:50 | disposition home or self-care (01) ==
LOC: C.EDB 19:13 → C.EDC 21:50
DX: R50.9 Fever, unspecified (principal); R53.1 Weakness; Z99.81 Dependence on supplemental oxygen; J44.9 Chronic obstructive pulmonary disease, unspecified; F03.90 Unspecified dementia, unspecified severity, without behavioral disturbance, psychotic disturbance, mood disturbance, and anxiety; Z87.891 Personal history of nicotine dependence; Z79.899 Other long term (current) drug therapy